=== PATIENT | male | born 1985 | race Caucasian/White ===

== ENCOUNTER 2020-11-06 09:23 | Emergency (ER) | payer OTHER, SELFPAY ==
[2020-11-06] VITALS (7 sets, daily range): BP systolic 127–157; BP diastolic 79–117; PULSE 64–87; RESP 14–20; TEMP 36.2; O2SAT 96–100; BMI 43.7
--- NOTE | 2020-11-06 09:44 | ECG_ITS ---
[facility] Test Date: 2020-11-06 Pat Name: Rodríguez Lim Department: Room: Gender: Male Occupational Therapist: : 1985 Requested By: Jefferson Matos Order Number: [id number] Marita MD: Jenni Bansal M.D. Measurements Intervals [place] Rate: 78 P: 13 NC: 166 QRS: 37 QRSD: 88 T: 69 QT: 346 QTc: 396 Interpretive Statements SINUS RHYTHM WITH SINUS ARRHYTHMIA Compared to ECG 12/29/2016 10:10:40 No significant changes Electronically Signed On 11-08-2020 9:00:35 CASTING ROOM OPERATOR by Jenni Bansal M.D. [email or web address] (acquired by [employer])/store/[id number] f
--- NOTE | 2020-11-06 09:44 | XR_ITS ---
WS: [id number] Portable AP upright chest, 11/06/2020 Clinical Data: chest pain Comparison: PA and lateral chest, 12/29/2016. Findings: No nodules, masses or effusions are seen. The heart is normal. The pulmonary vascularity is not increased. No pneumonia or pneumothorax is seen. There is a monitor lead over the left chest wal l. XR/XR chest 1V portable [id number] Impression: Negative chest.
--- NOTE | 2020-11-06 09:46 | ED_ITS ---
HPI - Chest Pain General: Chief Complaint: Chest Pain Stated Complaint: Chest Pain Time Seen by Provider: 11/06/20 09:33 History of Present Illness: HPI narrative: 35-year-old male presents emergency room with chest pain. He has had chest pain for several weeks. Least a week and 1/2 to 2 weeks ago he was seen at another ER in the area and was tested for Covid. That ultimately came back negative he describes what sounds like congestive heart failure having been read on a chest x-ray done at that visit. He has an echocardiogram scheduled. He has pain in the left side of his chest that is reproducible with palpation radiates up into his neck and his left shoulder. Today it got worse while he was working. This is been going on off and on for several weeks now. He has no personal history of coronary artery disease he is not previously been screened for any coronary artery disease he has no diabetes he is a former smoker. MD complaint: chest pain Onset (ago): week(s) Timing of current episode: episodic Prior episodes: Yes Onset: during exertion Pain location: left chest Pain radiation: neck and left shoulder Severity: moderate Quality: aching and heaviness Exacerbating factors: exertion Associated symptoms: Reports diaphoresis and dyspnea; Deny abdominal pain, fever(s), leg edema, nausea, palpitations, syncope, vomiting or other Treatment prior to arrival: none Review of Systems Const: Reports: diaphoresis; Denies: fever(s) ENMT: Denies: throat pain, ear or mastoid pain, nasal discharge or nasal congestion Card: Denies: palpitations or syncope Resp: Reports: dyspnea GI: Denies: abdominal pain, nausea or vomiting : Denies: flank pain, dysuria, urinary frequency or urinary urgency Skin/Breast: Denies: rash or pruritus [facility] ED PFSH: Medical History (Updated 11/06/20 @ 13:46 by Jefferson Gonzalez DO) Anxiety Depression Neuropathy Nodule of left lung Surgical History (Updated 11/06/20 @ 09:50 by Jefferson Gonzalez DO) Hx of inguinal hernia surgery Social History Smoking and tobacco status: former smoker Alcohol intake: current Alcohol intake frequency: few times a month Physical Exam Const: COMMON NORMALS: no acute distress GENERAL APPEARANCE: cooperative and comfortable ORIENTATION/CONSCIOUSNESS: Yes awake, Yes oriented to person, Yes oriented to place and Yes oriented to time HENMT: COMMON NORMALS: normocephalic, atraumatic and hearing grossly normal bilaterally HEAD & SCALP: normocephalic and atraumatic Neck/C-Spine: COMMON NORMALS: no JVD Chest: CHEST: Yes localized rib tenderness with anteroposterior compression (Left upper chest laterally) Resp: COMMON NORMALS: normal respiratory effort, No retractions, No use of accessory muscles and clear to auscultation bilaterally AUSCULTATION: clear to auscultation bilaterally Cardio: COMMON NORMALS: no JVD, regular rate, regular rhythm and No murmurs present (Cardio) RATE: regular rate RHYTHM: regular rhythm GI: COMMON NORMALS: Soft to palpation and No hepatosplenomegaly present AUSCULTATION: Yes normoactive bowel sounds PALPATION: Yes Soft to palpation, No Tenderness to palpation present (GI), No Guarding due to palpation present (GI) and Yes No hepatosplenomegaly present Extremity: COMMON NORMALS: normal to inspection, capillary refill normal, no clubbing, cyanosis or edema, no calf tenderness and no pedal edema Neuro: SENSORIUM/ORIENTATION: Yes oriented to person, Yes oriented to place and Yes oriented to time Skin: COMMON NORMALS: no rashes or lesions noted GENERAL SKIN EXAM: no rashes or lesions noted Course Vital Signs: Vital signs: Vital Signs Temperature 97.2 F L 11/06/20 09:29 Pulse Rate 64 11/06/20 13:00 Respiratory Rate 20 H 11/06/20 13:00 Blood Pressure 127/79 11/06/20 13:00 Pulse Oximetry 99 11/06/20 13:00 MDM - Chest Pain MDM Narrative: Medical decision making narrative: EKGs are unremarkable as are his troponins there is in the normal range with the 0 delta. We will go ahead and discharge him home. Case management will set him up for a sestamibi stress test asked him to start taking aspirin daily if he has any recurrence of symptoms he can return to the emergency room avoid exertional activities until this stress test is completed. Lab Data: Labs: Lab Results 11/06/20 11/06/20 11/06/20 Range/Units 09:50 09:50 09:50 WBC 8.1 (4.0-10.0) 10^3/ uL RBC 5.25 (4.1-5.3) 10^6/u L Hgb 15.3 (11.7-16.6) g/dL Hct 46.3 (42.0-52.0) % MCV 88.2 (80-94) fL MCH 29.1 (28.0-34.0) pg MCHC 33.0 (30.0-36.0) g/dL RDW 12.8 (12.1-15.1) % Plt Count 192 (130-400) 10^3/c mm MPV 12.4 H (7.4-10.4) fL Neut % (Auto) 58.4 % Lymph % (Auto) 25.4 % [place] % (Auto) 10.8 % Eos % (Auto) 3.8 % Baso % (Auto) 1.2 % Neut # (Auto) 4.72 (1.8-7.7) 10^3/u L Lymph # (Auto) 2.1 (0.8-4.8) 10^3/u L [place] # (Auto) 0.9 (0.2-0.9) 10^3/u L Eos # (Auto) 0.3 (0.0-0.8) 10^3/u L Baso # (Auto) 0.1 (0.0-0.1) 10^3/u L Nucleated RBC % (a uto) 0 % Nucleated RBCs # 0.0 /100WBC D-Dimer <= 0.27 (0-0.59) ug/mIFE U Sodium 135 L (136-145) mmol/L Potassium 4.0 (3.5-5.1) mmol/L Chloride 99 (98-107) mmol/L Carbon Dioxide 25 (22-29) mmol/L Anion Gap 15.0 (5-19) BUN 16 (6-20) mg/dL Creatinine 0.6 L (0.7-1.2) mg/dL GFR Calculation 153.3 H (90-130) mL/min Glucose 91 (65-115) mg/dL Calculated Osmolal ity 281 L (285-295) mOsm/k g Calcium 9.3 (8.5-10.5) mg/dL Total Bilirubin 0.3 (0.15-1.2) mg/dL AST 15 (0-40) U/L ALT 27 (0-41) U/L Alkaline Phosphata se 71 (40-130) IU/L Troponin T Baselin e (0-15) ng/L Troponin T 120 Min augustine (0-15) ng/L Delta Troponin T (0-10) ABS# NT-Pro-B Natriuret Pep 24 (0-125) pg/mL Total Protein 7.1 (6.6-8.7) g/dL Albumin 4.5 (3.5-5.2) g/dL Globulin 2.6 (1.3-4.6) g/dL 11/06/20 11/06/20 Range/Units 09:50 12:12 WBC (4.0-10.0) 10^3/ uL RBC (4.1-5.3) 10^6/u L Hgb (11.7-16.6) g/dL Hct (42.0-52.0) % MCV (80-94) fL MCH (28.0-34.0) pg MCHC (30.0-36.0) g/dL RDW (12.1-15.1) % Plt Count (130-400) 10^3/c mm MPV (7.4-10.4) fL Neut % (Auto) % Lymph % (Auto) % [place] % (Auto) % Eos % (Auto) % Baso % (Auto) % Neut # (Auto) (1.8-7.7) 10^3/u L Lymph # (Auto) (0.8-4.8) 10^3/u L [place] # (Auto) (0.2-0.9) 10^3/u L Eos # (Auto) (0.0-0.8) 10^3/u L Baso # (Auto) (0.0-0.1) 10^3/u L Nucleated RBC % (a uto) % Nucleated RBCs # /100WBC D-Dimer (0-0.59) ug/mIFE U Sodium (136-145) mmol/L Potassium (3.5-5.1) mmol/L Chloride (98-107) mmol/L Carbon Dioxide (22-29) mmol/L Anion Gap (5-19) BUN (6-20) mg/dL Creatinine (0.7-1.2) mg/dL GFR Calculation (90-130) mL/min Glucose (65-115) mg/dL Calculated Osmolal ity (285-295) mOsm/k g Calcium (8.5-10.5) mg/dL Total Bilirubin (0.15-1.2) mg/dL AST (0-40) U/L ALT (0-41) U/L Alkaline Phosphata se (40-130) IU/L Troponin T Baselin e 6 (0-15) ng/L Troponin T 120 Min augustine 6.00 (0-15) ng/L Delta Troponin T 0 (0-10) ABS# NT-Pro-B Natriuret Pep (0-125) pg/mL Total Protein (6.6-8.7) g/dL Albumin (3.5-5.2) g/dL Globulin (1.3-4.6) g/dL Discharge Plan Discharge Patient Disposition: Home Clinical Impression: Atypical chest pain Condition: Stable Prescriptions: New aspirin 81 mg tablet,delayed release (DR/EC) 81 mg PO DAILY Qty: 30 RF: 0 No Action gabapentin 300 mg capsule 300 mg PO DAILY PRN (Reason: Pain) RF: 0 fluoxetine 40 mg capsule 40 mg PO DAILY@05 RF: 0 Discharge Orders: Discharge ED (Routine); Ordered 11/06/20 Ordered By: Jefferson Gonzalez Referrals: Aniya Arguello [Primary Care Provider] - Discharge Diet: Usual diet Discharge Activity: Limit activity as instructed Activity Restrictions/Additional Instructions: His management will call with an appointment to have a stress test. Coding Level of Care Code ED Manager Administrative Services for Danielg Fwd Exam Comprehensive
[2020-11-06 09:59] LABS: Basophils # 0.1 10^3/uL (0.0-0.1); Basophils % 1.2 %; Eosinophils # 0.3 10^3/uL (0.0-0.8); Eosinophils % 3.8 %; Hematocrit 46.3 % (42.0-52.0); Hemoglobin 15.3 g/dL (11.7-16.6); Lymphocytes # 2.1 10^3/uL (0.8-4.8); Lymphocytes % 25.4 %; Mean Corpuscular Hemoglobin 29.1 pg (28.0-34.0); Mean Corpuscular Volume 88.2 fL (80-94); Mean Platelet Volume 12.4 fL (7.4-10.4); Monocytes # 0.9 10^3/uL (0.2-0.9); Monocytes % 10.8 %; Neutrophils # 4.72 10^3/uL (1.8-7.7); Neutrophils % 58.4 %; Nucleated Red Blood Cells % 0 %; Platelet Count 192 10^3/cmm (130-400); Red Blood Count 5.25 10^6/uL (4.1-5.3); Red Cell Distribution Width 12.8 % (12.1-15.1); White Blood Count 8.1 10^3/uL (4.0-10.0)
[2020-11-06 10:13] LABS: D Dimer <= 0.27 ug/mIFEU (0-0.59)
[2020-11-06 10:19] LABS: Troponin(5th) Baseline 6 ng/L (0-15)
[2020-11-06 10:27] LABS: Alanine Aminotransferase 27 U/L (0-41); Albumin Level 4.5 g/dL (3.5-5.2); Alkaline Phosphatase 71 IU/L (40-130); Aspartate Amino Transferase 15 U/L (0-40); Blood Urea Nitrogen 16 mg/dL (6-20); Calcium 9.3 mg/dL (8.5-10.5); Carbon Dioxide 25 mmol/L (22-29); Chloride 99 mmol/L (98-107); Globulin 2.6 g/dL (1.3-4.6); Glomerular Filtration Rate 153.3 mL/min (90-130); Glucose 91 mg/dL (65-115); NT Pro B Type Natriuretic Pept 24 pg/mL (0-125); Osmolality Calculated 281 mOsm/kg (285-295); Sodium 135 mmol/L (136-145); Total Bilirubin 0.3 mg/dL (0.15-1.2); Total Protein 7.1 g/dL (6.6-8.7)
--- NOTE | 2020-11-06 11:44 | ECG_ITS ---
[facility] Test Date: 2020-11-06 Pat Name: Rodríguez Lim Department: Room: Gender: Male Sap Bpc Developer: : 1985 Requested By: Jefferson Matos Order Number: [id number] Marita MD: Jenni Bansal M.D. Measurements Intervals [place] Rate: 62 P: 10 SD: 191 QRS: 49 QRSD: 94 T: 64 QT: 395 QTc: 403 Interpretive Statements SINUS RHYTHM Compared to ECG 12/29/2016 10:10:40 No significant changes Electronically Signed On 11-08-2020 9:23:18 RN MIDWIFE by Jenni Bansal M.D. [email or web address] county [email or web address] medical specialty hospital - boardman, incEniram/store/OM/[id number]
--- NOTE | 2020-11-06 12:08 | PC.NURSE ---
EKG done at 1205 and shown to ER doctor
[2020-11-06 12:45] LABS: Troponin 5 2HR Delta 0 ABS# (0-10)
--- NOTE | 2020-11-10 08:57 | DCPLANNER ---
Addendum entered by Kaylie Silva 11/25/20 15:19: medical and health services manager was told that patients insurance is wanting a peer to peer for the stress test. medical and health services manager called patient and informed patient of this. medical and health services manager told patient that he would need to see his primary care physician and if his primary care physician wanted patient to have a stress test than his primary care physician can order the stress test. Patient stated that he understood. Original Note: medical and health services manager had message to schedule an out patient stress test for patient. medical and health services manager faxed order to centralized scheduling. Will call for appointment information.
== END 2020-11-06 14:01 | disposition home or self-care (01) ==
PROVIDERS: Emergency Provider Family Medicine; PCP Nurse Practitioner Family
DX: R07.89 Other chest pain (principal); Z87.891 Personal history of nicotine dependence
CPT/HCPCS: 12345; 36415; 71045; 80053; 83880; 84484; 85025; 85378; 93005; 99283; 99284

== ENCOUNTER 2020-11-30 07:06 | Outpatient (CLI) | payer OTHER, SELFPAY ==
[2020-11-30] MEDS: iohexol 350 mg/mL 100 mL Btl IV (07:48)
--- NOTE | 2020-11-30 08:00 | CT_ITS ---
WS: [id number] CTA THORACIC TECHNIQUE: Contrast enhanced CTA of the thoracic aorta with coronal and sagittal reformatted images a nd maximum intensity projection (MIP) images. CLINICAL INFORMATION: R07.9 - Chest pain, unspecified COMPARISON: None. DLP: 572.[address] scans at [facility] use at least one of these dose optimization techniques: automat ed exposure control; mA and/or kV adjustment per patient size (includes targeted exams where dose is matched to clinical indication); or iterative reconstruction. FINDINGS: Proximal main pulmonary arteries are normal. Normal segmental and subsegmental pulmonary arteries. No evidence of pulmonary embolus. Lungs are well aerated. No acute pulmonary infiltrates. No consolidation or pleural fluid. No mediast inal or hilar lymphadenopathy. Calcified right hilar lymph nodes. No axillary lymphadenopathy. Normal caliber thoracic aorta. Adrenal glands are normal. CT/CT angio chest [id number] IMPRESSION: 1. Proximal main pulmonary arteries are normal. Normal segmental and subsegmen rabia pulmonary arteries. No evidence for pulmonary embolus. 2. Lungs are well aerated. No acute pulmonary infiltrates. No consolidation or pleural fluid. 3. No mediastinal or hilar lymphadenopathy. 4. No other significant findings.
== END 2020-11-30 07:07 | disposition home or self-care (01) ==
LOC: CT 07:09
PROVIDERS: PCP Family Medicine; Visit Provider Thoracic Surgery (Cardiothoracic Vascular Surgery)
DX: R07.9 Chest pain, unspecified (principal)
CPT/HCPCS: 71275

== ENCOUNTER → 2021-06-18 10:17 | Outpatient (BNVA) | payer OTHER, SELFPAY | PROVIDERS: PCP Family Medicine; Visit Provider Registered Nurse | DX: Z20.822 Contact with and (suspected) exposure to COVID-19 (principal); R19.7 Diarrhea, unspecified | CPT/HCPCS: 87635 ==

== ENCOUNTER 2021-06-22 14:52 | Outpatient (CLI) | payer OTHER, SELFPAY ==
--- NOTE | 2021-06-22 15:01 | XRR_ITS ---
PROCEDURE INFORMATION: Exam: XR Chest Exam date and time: 06/22/2021 3:01 PM Age: 35 years old Clinical indication: Cough; Additional info: R05 - cough TECHNIQUE: Imaging protocol: XR of the chest. Views: 2 views. COMPARISON: CR XR chest 1V portable [id number] 11/06/2020 9:49 AM FINDINGS: Lungs: Unremarkable. No consolidation. Pleural spaces: Unremarkable. No pleural effusion. No pneumothorax. Heart/Mediastinum: Unremarkable. No cardiomegaly. Bones/joints: Unremarkable. XR/XR chest 2V* [id number] IMPRESSION: No acute findings.
[2021-06-22 15:29] LABS: Basophils # 0.1 10^3/uL (0.0-0.1); Basophils % 0.8 %; Eosinophils # 0.3 10^3/uL (0.0-0.8); Eosinophils % 3.3 %; Hematocrit 47.5 % (42.0-52.0); Hemoglobin 15.5 g/dL (11.7-16.6); Lymphocytes # 1.4 10^3/uL (0.8-4.8); Lymphocytes % 18.3 %; Mean Corpuscular HGB Conc 32.6 g/dL (30.0-36.0); Mean Corpuscular Hemoglobin 29.3 pg (28.0-34.0); Mean Corpuscular Volume 89.8 fl (80-94); Mean Platelet Volume 12.8 fL (7.4-10.4); Monocytes # 0.7 10^3/uL (0.2-0.9); Neutrophils # 5.21 10^3/uL (1.8-7.7); Neutrophils % 68.3 %; Nucleated Red Blood Cells % 0 %; Platelet Count 213 10^3/cmm (130-400); Red Blood Count 5.29 10^6/uL (4.1-5.3); Red Cell Distribution Width 12.9 % (12.1-15.1); White Blood Count 7.6 10^3/uL (4.0-10.0)
== END 2021-06-22 14:53 | disposition home or self-care (01) ==
LOC: RAD 14:58
PROVIDERS: PCP Family Medicine; Visit Provider Nurse Practitioner Family
DX: R05 Cough (principal); Z15.89 Genetic susceptibility to other disease; M19.90 Unspecified osteoarthritis, unspecified site; Z79.899 Other long term (current) drug therapy
CPT/HCPCS: 71046; 85025

== ENCOUNTER 2022-07-01 21:02 | Emergency (ER) | payer OTHER, SELFPAY ==
[2022-07-01 21:19] VITALS: BP 155/93; PULSE 74; RESP 12; TEMP 36.6; O2SAT 97; BMI 42.5
--- NOTE | 2022-07-02 00:42 | CTR_ITS ---
PROCEDURE INFORMATION: Exam: CT Right Upper Extremity With Contrast, Elbow Exam date and time: 07/02/2022 1:34 AM Age: 36 years old Clinical indication: Pain; Elbow; Right; Additional info: R elbow pain, redness, swelling TECHNIQUE: Imaging protocol: Computed tomography of the Right upper extremity with contrast. Exam focused on the elbow. Radiation optimization: All CT scans at this facility use at least one of these dose optimization techniques: automated exposure control; mA and/or kV adjustment per patient size (includes targeted exams where dose is matched to clinical indication); or iterative reconstruction. Contrast material: OMNI 350; Contrast volume: 80 ml; Contrast route: INTRAVENOUS (IV); COMPARISON: No relevant prior studies available. RADIATION DOSE METRICS: Total DLP (mGy-cm): 206.79 FINDINGS: Bones/joints: No bone destruction or periosteal elevation. No acute fracture or dislocation. Soft tissues: There is dorsal subcutaneous edema consistent with cellulitis. No abscess. CT/[place] elbow [place] w con [id number] IMPRESSION: 1. There is dorsal subcutaneous edema consistent with cellulitis. No abscess. 2. No evidence of osteomyelitis. 3. No acute fracture or dislocation.
[2022-07-02 01:40] LABS: Basophils # 0.1 10^3/uL (0.0-0.1); Basophils % 1.2 %; Eosinophils # 0.3 10^3/uL (0.0-0.8); Eosinophils % 5.5 %; Hematocrit 44.5 % (42.0-52.0); Hemoglobin 14.4 g/dL (11.7-16.6); Lymphocytes # 1.6 10^3/uL (0.8-4.8); Lymphocytes % 27.3 %; Mean Corpuscular HGB Conc 32.4 g/dL (30.0-36.0); Mean Corpuscular Hemoglobin 28.7 pg (28.0-34.0); Mean Corpuscular Volume 88.6 fl (80-94); Mean Platelet Volume 12.4 fL (7.4-10.4); Monocytes # 0.7 10^3/uL (0.2-0.9); Monocytes % 13.1 %; Neutrophils # 2.99 10^3/uL (1.8-7.7); Neutrophils % 52.7 %; Nucleated Red Blood Cells % 0 %; Platelet Count 206 10^3/cmm (130-400); Red Blood Count 5.02 10^6/uL (4.1-5.3); Red Cell Distribution Width 13.1 % (12.1-15.1); White Blood Count 5.7 10^3/uL (4.0-10.0)
[2022-07-02] MEDS: iohexol 350 mg/mL 100 mL Btl 80 ML IV (01:43)
[2022-07-02 01:47] LABS: Erythrocyte Sedimentation Rate 12 mm/hr (0-10)
--- NOTE | 2022-07-02 01:50 | W.ED.WOUNDLC ---
HPI - Wound/Laceration General: Chief Complaint: Wound/Laceration Stated Complaint: Right arm pain Time Seen by Provider: 07/02/22 00:26 Source: patient History of Present Illness: 36-year-old male complaining of right posterior and medial elbow pain, redness, and swelling. He has noticed this over the past few days. He was seen in outside hospital, and given Keflex as an outpatient. His swelling and redness have worsened despite this. He denies fever. Onset (ago): day(s) Extremity Location: Right: elbow Associated symptoms: Denies fever(s), nausea or vomiting Review of Systems Const: Denies: fever(s) ENMT: Denies: throat pain Card: Denies: chest pain or palpitations Resp: Denies: dyspnea, productive cough or non-productive cough GI: Denies: abdominal pain, nausea or vomiting Musc: Denies: neck pain Skin/Breast: Reports: rash and erythema PFSH ED PFSH: Medical History Anxiety Depression Neuropathy Nodule of left lung Surgical History Hx of inguinal hernia surgery Family History Father Healthy adult Mother Unknown family medical history Social History Smoking and tobacco status: former smoker Alcohol intake: current Alcohol intake frequency: few times a month Marital status: Number of children: 4 Current occupational status: employed History of recent travel: No Physical Exam Const: COMMON NORMALS: no acute distress GENERAL APPEARANCE: cooperative; not ill appearing and not frail appearing HENMT: COMMON NORMALS: normocephalic, atraumatic and Normal external nose present HEAD & SCALP: normocephalic and atraumatic FACE & SINUS: normal facial exam and face symmetric NOSE: Normal external nose present Eye: COMMON NORMALS: Equal, round and reactive pupils present and EOMs intact bilaterally PUPIL: Yes Equal, round and reactive pupils present Neck/C-Spine: GENERAL: Yes trachea midline Chest: CHEST: Yes Symmetrical chest wall rise Resp: COMMON NORMALS: normal respiratory effort, No retractions, No use of accessory muscles and clear to auscultation bilaterally AUSCULTATION: clear to auscultation bilaterally Cardio: COMMON NORMALS: regular rate and regular rhythm RATE: regular rate RHYTHM: regular rhythm GI: COMMON NORMALS: Normal to inspection, nondistended, normoactive bowel sounds present Extremity: COMMON NORMALS: no pedal edema NARRATIVE EXTREMITY EXAM: Exam of the right upper extremity reveals tenderness, swelling, and redness over the posterior and medial right elbow. There is no streaking. Sensation is intact distally. There is no definite fluid collection present Neuro: ROCIO COMA SCALE: document GCS findings [place] coma scale eye opening: Spontaneous Rocio coma scale verbal response: Orientated [place] coma scale motor response: Obey commands [place] coma scale total score: 15 SENSORY EXAM: Yes extremities (intact) Psych: COMMON NORMALS: speech normal SPEECH: Yes normal speech Skin: COMMON NORMALS: no rashes or lesions noted GENERAL SKIN EXAM: no rashes or lesions noted Course Vital Signs: Vital signs: Vital Signs Temperature 97.8 F 07/01/22 21:19 Pulse Rate 83 07/02/22 02:00 Respiratory Rate 16 07/02/22 02:00 Blood Pressure 137/79 07/02/22 02:00 Pulse Oximetry 97 07/02/22 02:00 Oxygen Delivery Me thod 07/01/22 21:19 MDM - Wound/Laceration Medical Decision Making Afebrile here. CBC is normal. BMP is normal. CRP is only 5. ESR is 12. CT shows no drainable abscess. There is subcutaneous edema consistent with cellulitis. No evidence of joint involvement or bursal involvement. He received 900 of clindamycin here. He will be allowed home on clindamycin. He knows to return for worsening symptoms despite treatment. Lab Data : 07/02/22 01:10 07/02/22 01:[address] 07/02/22 00:42 IMPRESSION: 1. There is dorsal subcutaneous edema consistent with cellulitis. No abscess. 2. No evidence of osteomyelitis. 3. No acute fracture or dislocation. Venous Duplex 07/02/22 01:52 IMPRESSION: No evidence of deep vein thrombosis. Laboratory Results WBC 5.7 10^3/uL (4.0-10.0) 07/02/22 01:10 RBC 5.02 10^6/uL (4.1-5.3) 07/02/22 01:10 Hgb 14.4 g/dL (11.7-16.6) 07/02/22 01:10 Hct 44.5 % (42.0-52.0) 07/02/22 01:10 MCV 88.6 fl (80-94) 07/02/22 01:10 MCH 28.7 pg (28.0-34.0) 07/02/22 01:10 MCHC 32.4 g/dL (30.0-36.0) 07/02/22 01:10 RDW 13.1 % (12.1-15.1) 07/02/22 01:10 Plt Count 206 10^3/cmm (130-400) 07/02/22 01:10 MPV 12.4 fL (7.4-10.4) H 07/02/22 01:10 Neut % (Auto) 52.7 % 07/02/22 01:10 Lymph % (Auto) 27.3 % 07/02/22 01:10 [place] % (Auto) 13.1 % 07/02/22 01:10 Eos % (Auto) 5.5 % 07/02/22 01:10 Baso % (Auto) 1.2 % 07/02/22 01:10 Neut # (Auto) 2.99 10^3/uL (1.8-7.7) 07/02/22 01:10 Lymph # (Auto) 1.6 10^3/uL (0.8-4.8) 07/02/22 01:10 [place] # (Auto) 0.7 10^3/uL (0.2-0.9) 07/02/22 01:10 Eos # (Auto) 0.3 10^3/uL (0.0-0.8) 07/02/22 01:10 Baso # (Auto) 0.1 10^3/uL (0.0-0.1) 07/02/22 01:10 Nucleated RBC % (auto) 0 % 07/02/22 01:10 Nucleated RBCs # 0.0 /100WBC 07/02/22 01:10 ESR 12 mm/hr (0-10) H 07/02/22 01:10 Sodium 139 mmol/L (136-145) 07/02/22 01:10 Potassium 3.8 mmol/L (3.5-5.1) 07/02/22 01:10 Chloride 103 mmol/L (98-107) 07/02/22 01:10 Carbon Dioxide 25 mmol/L (22-29) 07/02/22 01:10 Anion Gap 14.8 (5-19) 07/02/22 01:10 BUN 14 mg/dL (6-20) 07/02/22 01:10 Creatinine 0.6 mg/dL (0.7-1.2) L 07/02/22 01:10 GFR Calculation 152.4 mL/min (90-130) H 07/02/22 01:10 Glucose 111 mg/dL (65-115) 07/02/22 01:10 Calculated Osmolality 289 mOsm/kg (285-295) 07/02/22 01:10 Lactate 1.1 mmol/L (0.5-2.2) 07/02/22 01:10 Calcium 9.1 mg/dL (8.5-10.5) 07/02/22 01:10 Total Bilirubin 0.3 mg/dL (0.15-1.2) 07/02/22 01:10 AST 18 U/L (0-40) 07/02/22 01:10 ALT 27 U/L (0-41) 07/02/22 01:10 Alkaline Phosphatase 70 U/L (40-130) 07/02/22 01:10 C-Reactive Protein 5.7 mg/L (0.0-4.9) H 07/02/22 01:10 Total Protein 7.4 g/dL (6.6-8.7) 07/02/22 01:10 Albumin 4.2 g/dL (3.5-5.2) 07/02/22 01:10 Globulin 3.2 g/dL (1.3-4.6) 07/02/22 01:10 Discharge Plan Discharge Patient Disposition: Home Clinical Impression: Cellulitis of arm, right Condition: Stable Prescriptions: Continued clindamycin HCl 300 mg capsule 600 mg PO Q6H 10 Days Qty: 80 0RF hydrocodone-acetaminophen 5-325 mg tablet 1 tab PO Q6H PRN (Reason: pain) 5 Days Qty: 10 0RF No Action All Day Allergy (cetirizine) 10 mg capsule 10 mg PO DAILY PRN acetaminophen-codeine 300-30 mg tablet 1 tab PO Q6H PRN (Reason: pain) 7 Days Qty: 20 0RF silver sulfadiazine 1 % cream 1 applic topical BID 14 Days Qty: 50 2RF Rx Instructions: apply a 1.5 mm thickness valacyclovir [Valtrex] 500 mg tablet 500 mg PO DAILY fluoxetine 40 mg capsule 40 mg PO DAILY@05 Discharge Orders: Discharge ED (Routine); Ordered 07/02/22 Ordered By: Rufino Boogie Referrals: Lincoln Ontiveros [Primary Care Provider] - 1-3 days Patient Instructions: Cellulitis (ED), Opioid Safety Activity Restrictions/Additional Instructions: Return for fever greater than 100, worsening pain, worsening redness or streaking despite 2-3 doses of antibiotics. Ice may help with pain and swelling. Return for vomiting liquids or medications, or any other concerning symptoms. Follow-up with your doctor on Monday or Monday for a wound check. Stop the Keflex in favor of the new antibiotic you were given Coding Level of Care Code ED Labor Delivery Specialist for Danielg Fwd Exam Comprehensive
--- NOTE | 2022-07-02 01:52 | USR_ITS ---
PROCEDURE INFORMATION: Exam: US Duplex Right Lower Extremity Veins, Limited Exam date and time: 07/02/2022 2:33 AM Age: 36 years old Clinical indication: Swelling (edema) of limb; Upper extremity, right; Additional info: Rue pain, redness, swelling TECHNIQUE: Imaging protocol: Real-time Duplex ultrasound of the Right Lower Extremity with 2-D german scale, color Doppler flow and spectral waveform analysis with image documentation. Limited exam was focused on the right lower extremity veins. COMPARISON: No relevant prior studies available. FINDINGS: Right deep veins: Unremarkable. The common femoral, femoral, proximal profunda femoral and popliteal veins are patent without thrombus. Normal Doppler waveforms. Normal compressibility and/or augmentation response. Right superficial veins: Unremarkable. Saphenofemoral junction is patent without thrombus. Soft tissues: Unremarkable. US/[place] [id number] IMPRESSION: No evidence of deep vein thrombosis.
[2022-07-02 01:57] LABS: Lactate (Lactic Acid level) 1.1 mmol/L (0.5-2.2)
[2022-07-02 01:58] LABS: Alanine Aminotransferase 27 U/L (0-41); Albumin Level 4.2 g/dL (3.5-5.2); Alkaline Phosphatase 70 U/L (40-130); Anion Gap 14.8 (5-19); Aspartate Amino Transferase 18 U/L (0-40); Blood Urea Nitrogen 14 mg/dL (6-20); C Reactive Protein 5.7 mg/L (0.0-4.9); Calcium 9.1 mg/dL (8.5-10.5); Carbon Dioxide 25 mmol/L (22-29); Chloride 103 mmol/L (98-107); Globulin 3.2 g/dL (1.3-4.6); Glomerular Filtration Rate 152.4 mL/min (90-130); Glucose 111 mg/dL (65-115); Osmolality Calculated 289 mOsm/kg (285-295); Potassium 3.8 mmol/L (3.5-5.1); Sodium 139 mmol/L (136-145); Total Bilirubin 0.3 mg/dL (0.15-1.2); Total Protein 7.4 g/dL (6.6-8.7)
[2022-07-02 02:00] VITALS: BP 137/79; PULSE 83; RESP 16; O2SAT 97
[2022-07-02] MEDS: clindamycin 900 MG/50 ML PREMIX 100 MG IV (03:34)
[2022-07-02 04:04] VITALS: BP 139/83; PULSE 56; O2SAT 95
== END 2022-07-02 04:05 | disposition home or self-care (01) ==
PROVIDERS: Emergency Provider Emergency Medicine; PCP Family Medicine
DX: L03.113 Cellulitis of right upper limb (principal); Z87.891 Personal history of nicotine dependence
CPT/HCPCS: 73201; 80053; 83605; 85025; 85651; 86140; 87040; 93971; 96365; 99285; J3490; Q9967

== ENCOUNTER 2022-07-03 14:05 | Emergency (ER) | payer OTHER, SELFPAY ==
[2022-07-03 14:10] VITALS: BP 156/102; PULSE 72; RESP 16; TEMP 36.7; O2SAT 98; BMI 42.5
--- NOTE | 2022-07-03 14:51 | ED_ITS ---
HPI - Wound/Laceration General: Chief Complaint: Wound/Laceration Stated Complaint: bumps under skin Time Seen by Provider: 07/03/22 14:39 History of Present Illness: 36-year-old male presents with concerns for right arm cellulitis and possibly cellulitis in his leg. Patient was seen couple days ago at [facility] and started on clindamycin with a cellulitis. Patient was seen here on 07/02/2022. At that time he had a CT of his elbows that showed no abscess with cellulitis. Patient clindamycin was increased and he was given a dose of Vanco. They present because they feel like the swelling is gotten worse however the redness and warmth is decreased. Patient also had a negative venous Doppler at that time. Patient has no systemic complaints. Associated symptoms: Denies chills, fever(s), nausea or vomiting Review of Systems Const: Denies: fever(s) or chills Eyes: Denies: change in vision ENMT: Denies: throat pain or ear or mastoid pain Card: Denies: chest pain or palpitations Resp: Denies: dyspnea or productive cough GI: Denies: abdominal pain, nausea or vomiting : Denies: flank pain or difficulty urinating Musc: Reports: other (Please see HPI) Skin/Breast: Reports: other (Please see HPI) Psych: Denies: anxiety or depression [facility] ED PFSH: Medical History Anxiety Depression Neuropathy Nodule of left lung Surgical History Hx of inguinal hernia surgery Family History Father Healthy adult Mother Unknown family medical history Social History Smoking and tobacco status: former smoker Alcohol intake: current Alcohol intake frequency: few times a month Marital status: Number of children: 4 Current occupational status: employed History of recent travel: No Physical Exam Const: COMMON NORMALS: no acute distress, patient oriented x3, no limitations and alert Eye: COMMON NORMALS: Equal, round and reactive pupils present and EOMs intact bilaterally PUPIL: Yes Equal, round and reactive pupils present Neck/C-Spine: COMMON NORMALS: no JVD Resp: COMMON NORMALS: normal respiratory effort, No use of accessory muscles and clear to auscultation bilaterally AUSCULTATION: clear to auscultation bilaterally Cardio: COMMON NORMALS: no JVD and regular rate RATE: regular rate GI: COMMON NORMALS: Normal to inspection, nondistended, normoactive bowel sounds present, Soft to palpation and non-tender PALPATION: Yes Soft to palpation Extremity: COMMON NORMALS: full ROM, capillary refill normal and no joint enlargement Neuro: COMMON NORMALS: patient oriented x3 SENSORIUM/ORIENTATION: Yes alert Psych: COMMON NORMALS: mental status grossly normal, cooperative and speech normal SPEECH: Yes normal speech Skin: OTHER: Soft tissue swelling with some firm small subcutaneous firmness. No palpable abscess. There is 1 present proximal to the right elbow, 1 small subcutaneous nodule above left knee. No significant erythema. Very mild warmth with likely mild induration to the one above the elbow Course Vital Signs: Vital signs: Vital Signs Temperature 98.0 F 07/03/22 14:10 Pulse Rate 72 07/03/22 14:10 Respiratory Rate 16 07/03/22 14:10 Blood Pressure 156/102 07/03/22 14:10 Pulse Oximetry 98 07/03/22 14:10 Oxygen Delivery Me thod 07/03/22 14:10 MDM - Wound/Laceration Medical Decision Making Patient with mild cellulitis that seems to be improving. However patient and family is concerned that it may be a second 1. I will add Keflex and have him continue clinda. They should follow-up with her primary care provider next week. Patient CRP is negative today at where it was elevated on 07/02/2022. There is no abscess palpable. Patient has no elevated white count. I discussed with family that it takes time for antibiotics to work and they are not immediate. Patient follow-up with her primary care provider next week. Lab Data : 07/03/22 15:01 Laboratory Results WBC 5.5 10^3/uL (4.0-10.0) 07/03/22 15:01 RBC 4.96 10^6/uL (4.1-5.3) 07/03/22 15:01 Hgb 14.4 g/dL (11.7-16.6) 07/03/22 15:01 Hct 44.8 % (42.0-52.0) 07/03/22 15: MCV 90.3 fl (80-94) 07/03/22 15: MCH 29.0 pg (28.0-34.0) 07/03/22 15: MCHC 32.1 g/dL (30.0-36.0) 07/03/22 15: RDW 13.3 % (12.1-15.1) 07/03/22 15: Plt Count 199 10^3/cmm (130-400) 07/03/22 15: MPV 12.5 fL (7.4-10.4) H 07/03/22 15:01 Neut % (Auto) 59.8 % 07/03/22 15:01 Lymph % (Auto) 23.2 % 07/03/22 15:01 [place] % (Auto) 11.2 % 07/03/22 15: Eos % (Auto) 4.3 % 07/03/22 15:01 Baso % (Auto) 1.3 % 07/03/22 15: Neut # (Auto) 3.30 10^3/uL (1.8-7.7) 07/03/22 15:01 Lymph # (Auto) 1.3 10^3/uL (0.8-4.8) 07/03/22 15:01 [place] # (Auto) 0.6 10^3/uL (0.2-0.9) 07/03/22 15:01 Eos # (Auto) 0.2 10^3/uL (0.0-0.8) 07/03/22 15:01 Baso # (Auto) 0.1 10^3/uL (0.0-0.1) 07/03/22 15:01 Nucleated RBC % (auto) 0 % 07/03/22 15: Nucleated RBCs # 0.0 /100WBC 07/03/22 15:01 C-Reactive Protein 4.1 mg/L (0.0-4.9) 07/03/22 15:01 Discharge Plan Discharge Patient Disposition: Home Clinical Impression: Cellulitis of arm, right Condition: Stable Prescriptions: New cephalexin 500 mg capsule 500 mg PO TID 7 Days Qty: 21 0RF No Action All Day Allergy (cetirizine) 10 mg capsule 10 mg PO DAILY PRN acetaminophen-codeine 300-30 mg tablet 1 tab PO Q6H PRN (Reason: pain) 7 Days Qty: 20 0RF silver sulfadiazine 1 % cream 1 applic topical BID 14 Days Qty: 50 2RF Rx Instructions: apply a 1.5 mm thickness valacyclovir [Valtrex] 500 mg tablet 500 mg PO DAILY fluoxetine 40 mg capsule 40 mg PO DAILY@05 clindamycin HCl 300 mg capsule 600 mg PO Q6H 10 Days Qty: 80 0RF hydrocodone-acetaminophen 5-325 mg tablet 1 tab PO Q6H PRN (Reason: pain) 5 Days Qty: 10 0RF Discharge Orders: Discharge ED (Routine); Ordered 07/03/22 Ordered By: Maurice Reyes Referrals: Lincoln Ontiveros [Primary Care Provider] - Discharge Diet: Usual diet Discharge Activity: Resume usual activity Patient Instructions: Opioid Safety Activity Restrictions/Additional Instructions: Follow-up with your primary care provider next week for recheck of your symptoms Coding Level of Care Code ED Heel Blacker for Yassine Fwd Exam Comprehensive
[2022-07-03 15:22] LABS: Basophils # 0.1 10^3/uL (0.0-0.1); Basophils % 1.3 %; Eosinophils # 0.2 10^3/uL (0.0-0.8); Eosinophils % 4.3 %; Hematocrit 44.8 % (42.0-52.0); Hemoglobin 14.4 g/dL (11.7-16.6); Lymphocytes # 1.3 10^3/uL (0.8-4.8); Lymphocytes % 23.2 %; Mean Corpuscular HGB Conc 32.1 g/dL (30.0-36.0); Mean Corpuscular Volume 90.3 fl (80-94); Mean Platelet Volume 12.5 fL (7.4-10.4); Monocytes # 0.6 10^3/uL (0.2-0.9); Monocytes % 11.2 %; Neutrophils % 59.8 %; Nucleated Red Blood Cells % 0 %; Platelet Count 199 10^3/cmm (130-400); Red Blood Count 4.96 10^6/uL (4.1-5.3); Red Cell Distribution Width 13.3 % (12.1-15.1); White Blood Count 5.5 10^3/uL (4.0-10.0)
[2022-07-03 15:49] LABS: C Reactive Protein 4.1 mg/L (0.0-4.9)
== END 2022-07-03 16:16 | disposition home or self-care (01) ==
PROVIDERS: Emergency Provider Student in an Organized Health Care Education/Training Program; PCP Family Medicine
DX: L03.113 Cellulitis of right upper limb (principal)
CPT/HCPCS: 36415; 85025; 86140; 99283

== ENCOUNTER 2022-07-06 12:23 | Emergency (ER) | payer OTHER, SELFPAY ==
[2022-07-06 13:13] VITALS: BP 139/88; PULSE 77; RESP 16; TEMP 36.4; O2SAT 100; BMI 42.5
--- NOTE | 2022-07-06 13:35 | US_ITS ---
WS: [id number] INDICATION: RIGHT elbow pain/tenderness TECHNIQUE: Ultrasound area of concern RIGHT elbow COMPARISON: CT July 02, 2022 FINDINGS: Mild subcutaneous edema with skin thickening. Cellulitis dorsal elbow previously described on the recent elbow CT. No evidence of drainable fluid collection or abscess today. No cystic or oscar d lesions. No suspicious findings. US/US soft tissue/extremity 17201 IMPRESSION: No drainable fluid collections in the area of concern.
--- NOTE | 2022-07-06 13:36 | W.ED.GENADLT ---
HPI - General Adult General: Chief complaint: General Medical Stated complaint: Rash on body Time Seen by Provider: 07/06/22 13:17 History of Present Illness: Patient is a 36-year-old male comes to the ED with right elbow tender mass. Patient was seen at urgent care and the doctor sent patient here to the ED to get IV antibiotics and to be further evaluated. Patient was seen here in the ED July 01 for same complaint and diagnosed with cellulitis and was discharged home on clindamycin. Right elbow mass has not improved and gotten worse. Patient says it gets worse the more active he is and more movement he does with his elbow. The heat and the redness have improved on right elbow. He rates his pain currently an 8 out of 10 on right elbow. Associated symptoms: Deny chest pain, dyspnea, headache(s), nausea, rash, palpitations or vomiting Review of Systems Const: Denies: fever(s), chills or fatigue Eyes: Denies: change in vision or eye discomfort ENMT: Denies: throat pain, odynophagia, nasal discharge or nasal congestion Card: Denies: chest pain, palpitations, edema, swelling of feet/ankles, dyspnea on exertion or orthopnea Resp: Denies: dyspnea, productive cough or non-productive cough GI: Denies: abdominal pain, nausea, vomiting, diarrhea, constipation or hematochezia : Denies: flank pain, difficulty urinating, dysuria or hematuria Musc: Reports: extremity pain (Right elbow pain); Denies: neck pain, back pain or extremity swelling Skin/Breast: Reports: new lesions (Right elbow tender mass.); Denies: rash Neuro: Denies: headache(s), numbness in extremities or weakness in extremities [facility] ED PFSH: Medical History Anxiety Depression Neuropathy Nodule of left lung Surgical History Hx of inguinal hernia surgery Family History Father Healthy adult Mother Unknown family medical history Social History Smoking and tobacco status: former smoker Alcohol intake: current Alcohol intake frequency: few times a month Marital status: Number of children: 4 Current occupational status: employed History of recent travel: No Physical Exam Const: COMMON NORMALS: no acute distress, patient oriented x3 and alert HENMT: COMMON NORMALS: normocephalic HEAD & SCALP: normocephalic MOUTH: Normal oral and palatal mucosa present THROAT: posterior oropharynx normal and uvula midline Neck/C-Spine: COMMON NORMALS: supple GENERAL: Yes normal visual inspection Resp: COMMON NORMALS: normal respiratory effort, No retractions, No use of accessory muscles and clear to auscultation bilaterally AUSCULTATION: clear to auscultation bilaterally Cardio: COMMON NORMALS: regular rate, regular rhythm, S1 normal heart sound present, S2 normal heart sound present, No gallops present (Cardio), No clicks present (Cardio), No murmurs present (Cardio) and Peripheral pulses 2+ throughout RATE: regular rate RHYTHM: regular rhythm HEART SOUNDS: S1 normal heart sound present and S2 normal heart sound present PERIPHERAL PULSES: Peripheral pulses 2+ throughout GI: COMMON NORMALS: Normal to inspection, nondistended, normoactive bowel sounds present, Soft to palpation, non-tender and no masses PALPATION: Yes Soft to palpation : COMMON NORMALS: Yes no CVA tenderness BLADDER/KIDNEY EXAM: Yes no CVA tenderness Back/Pelvis: COMMON NORMALS: no CVA tenderness Extremity: NARRATIVE EXTREMITY EXAM: Right elbow?firm tender mass approximately 5 cm in diameter. No erythema or warmth. No purulent drainage. Mass is nonfluctuant. Neuro: COMMON NORMALS: patient oriented x3 SENSORIUM/ORIENTATION: Yes alert GAIT: Yes Normal gait present Skin: GENERAL SKIN EXAM: dry skin Course ED course: While nurse was putting in IV on patient he had a syncopal episode. He recovered well after he got some IV fluids. Vital Signs: Vital signs: Vital Signs Temperature 97.6 F 07/06/22 13:13 Pulse Rate 76 07/06/22 18:12 Respiratory Rate 18 07/06/22 18:12 Blood Pressure 131/78 07/06/22 18:12 Pulse Oximetry 96 07/06/22 18:12 Oxygen Delivery Me thod 07/06/22 18:12 [facility] - General Adult Medical Decision Making Patient is a 36-year-old male comes to the ED with right elbow tender mass. Patient was seen at urgent care and the doctor sent patient here to the ED to get IV antibiotics and to be further evaluated. Patient was seen here in the ED July 01 for same complaint and diagnosed with cellulitis and was discharged home on clindamycin. Right elbow mass has not improved and gotten worse. Patient says it gets worse the more active he is and more movement he does with his elbow. The heat and the redness have improved on right elbow. Vitals are stable. Patient appears in no acute distress. Right elbow?firm tender mass approximately 5 cm in diameter. No erythema or warmth. No purulent drainage. Mass is nonfluctuant. Cellulitis appears to be improving but patient still has the tender mass in right elbow. While nurse was putting in IV on patient he had a syncopal episode. He recovered well after he got some IV fluids. Soft tissue ultrasound of the right elbow showed no drainable fluid collection and noted some mild subcutaneous edema with skin thickening. No cystic or solid lesion seen. Head CT showed no acute findings and it was ordered due to syncopal episode. CBC and CMP were unremarkable. First lactic acid was a little elevated 2.6 but that was taken after his syncopal episode and that is likely the cause of his elevation. The second lactic acid drawn went down to 1.6. Patient was given IV antibiotics and steroids and was stable for discharge home. I placed an order with case management for patient to be referred to Ortho for right elbow mass. Patient was diagnosed with mass of right elbow and vasovagal episode. He was discharged home with a prescription for steroid and told to continue taking his previously prescribed antibiotics. Return to ED precautions given. Patient understood and agreed with plan. Lab Data I reviewed the patient's lab results. : 07/06/22 14:39 07/06/22 14:39 Radiology Impressions Soft Tissue Ultrasound 07/06/22 13:35 IMPRESSION: No drainable fluid collections in the area of concern. Head CT 07/06/22 15:32 IMPRESSION: No acute intracranial abnormality. Laboratory Results WBC 7.8 10^3/uL (4.0-10.0) 07/06/22 14:39 RBC 5.34 10^6/uL (4.1-5.3) H 07/06/22 14:39 Hgb 15.5 g/dL (11.7-16.6) 07/06/22 14:39 Hct 47.3 % (42.0-52.0) 07/06/22 14:39 MCV 88.6 fl (80-94) 07/06/22 14:39 MCH 29.0 pg (28.0-34.0) 07/06/22 14:39 MCHC 32.8 g/dL (30.0-36.0) 07/06/22 14:39 RDW 13.2 % (12.1-15.1) 07/06/22 14:39 Plt Count 212 10^3/cmm (130-400) 07/06/22 14:39 MPV 12.6 fL (7.4-10.4) H 07/06/22 14:39 Neut % (Auto) 54.4 % 07/06/22 14:39 Lymph % (Auto) 30.5 % 07/06/22 14:39 [place] % (Auto) 10.5 % 07/06/22 14:39 Eos % (Auto) 3.4 % 07/06/22 14:39 Baso % (Auto) 1.1 % 07/06/22 14:39 Neut # (Auto) 4.25 10^3/uL (1.8-7.7) 07/06/22 14:39 Lymph # (Auto) 2.4 10^3/uL (0.8-4.8) 07/06/22 14:39 [place] # (Auto) 0.8 10^3/uL (0.2-0.9) 07/06/22 14:39 Eos # (Auto) 0.3 10^3/uL (0.0-0.8) 07/06/22 14:39 Baso # (Auto) 0.1 10^3/uL (0.0-0.1) 07/06/22 14:39 Nucleated RBC % (auto) 0 % 07/06/22 14:39 Nucleated RBCs # 0.0 /100WBC 07/06/22 14:39 Sodium 138 mmol/L (136-145) 07/06/22 14:39 Potassium 4.1 mmol/L (3.5-5.1) 07/06/22 14:39 Chloride 99 mmol/L (98-107) 07/06/22 14:39 Carbon Dioxide 27 mmol/L (22-29) 07/06/22 14:39 Anion Gap 16.1 (5-19) 07/06/22 14:39 BUN 9 mg/dL (6-20) 07/06/22 14:39 Creatinine 0.9 mg/dL (0.7-1.2) 07/06/22 14:39 GFR Calculation 95.5 mL/min (90-130) 07/06/22 14:39 Glucose 90 mg/dL (65-115) 07/06/22 14:39 POC Glucose 86 mg/dL (70-110) 07/06/22 14:05 Calculated Osmolality 284 mOsm/kg (285-295) L 07/06/22 14:39 Lactic Acid 2.6 mmol/L (0.5-2.2) H 07/06/22 14:39 Lactic Acid (Sepsis) 1.6 mmol/L (0.5-2.2) 07/06/22 17:18 Calcium 9.6 mg/dL (8.5-10.5) 07/06/22 14:39 Total Bilirubin 0.4 mg/dL (0.15-1.2) 07/06/22 14:39 AST 21 U/L (0-40) 07/06/22 14:39 ALT 27 U/L (0-41) 07/06/22 14:39 Alkaline Phosphatase 77 U/L (40-130) 07/06/22 14:39 C-Reactive Protein 6.2 mg/L (0.0-4.9) H 07/06/22 14:39 Total Protein 7.6 g/dL (6.6-8.7) 07/06/22 14:39 Albumin 4.5 g/dL (3.5-5.2) 07/06/22 14:39 Globulin 3.1 g/dL (1.3-4.6) 07/06/22 14:39 EKG Data EKG 1: EKG interpretation date: 07/06/22 Interpretation: Normal sinus rhythm, 65 bpm, no ST segment elevation or depression seen. Computer generated interpretation: Soft Tissue Ultrasound 07/06/22 13:35 IMPRESSION: No drainable fluid collections in the area of concern. Head CT 07/06/22 15:32 IMPRESSION: No acute intracranial abnormality. Discharge Plan Discharge Patient Disposition: Home Clinical Impression: Mass of right elbow, Vasovagal episode Condition: Stable Prescriptions: New prednisone 20 mg tablet 20 mg PO BID 5 Days Qty: 10 0RF No Action All Day Allergy (cetirizine) 10 mg capsule 10 mg PO DAILY PRN (Reason: Allergy Symptoms) valacyclovir [Valtrex] 500 mg tablet 500 mg PO DAILY clindamycin HCl 300 mg capsule 600 mg PO Q6H 10 Days Qty: 80 0RF hydrocodone-acetaminophen 5-325 mg tablet 1 tab PO Q6H PRN (Reason: pain) 5 Days Qty: 10 0RF cephalexin 500 mg capsule 500 mg PO TID 7 Days Qty: 21 0RF Discharge Orders: Discharge ED (Routine); Ordered 07/06/22 Ordered By: Ramesh Rojo Referrals: Lincoln Ontiveros [Primary Care Provider] - Discharge Diet: Regular Discharge Activity: Increase activity as tolerated Patient Instructions: Syncope (ED) Activity Restrictions/Additional Instructions: Follow-up with medical provider as directed. Case management should be contacting you in the next several days to set up an appoint with Ortho for follow-up on right elbow mass. Continue taking your previously prescribed clindamycin until course is complete. Take medications as prescribed. Return to the ER or your medical provider if condition worsens. Please read and understand discharge instructions. Thank you for choosing [facility] for your healthcare needs today. Please realize this is an emergency room and that we are providing you with a medical screening exam and this may not be complete and all inclusive of all the testing and or work up that you may need to determine your ailment or severity of your illness. It is very important that you follow up as instructed or that you return to the Emergency Department should you have concerns or if your condition changes or worsens in any way. Stand Alone Forms: Work/School Release Coding Level of Care Code ED Sql Ssrs Developer for Yassine Fwfazal Exam Comprehensive
[2022-07-06 14:10] LABS: Glucose Point of Care 86 mg/dL (70-110)
[2022-07-06] MEDS: ketorolac 30 mg/mL INJ IVP (14:43)
[2022-07-06 14:45] LABS: Basophils # 0.1 10^3/uL (0.0-0.1); Basophils % 1.1 %; Eosinophils # 0.3 10^3/uL (0.0-0.8); Eosinophils % 3.4 %; Hematocrit 47.3 % (42.0-52.0); Hemoglobin 15.5 g/dL (11.7-16.6); Lymphocytes # 2.4 10^3/uL (0.8-4.8); Lymphocytes % 30.5 %; Mean Corpuscular HGB Conc 32.8 g/dL (30.0-36.0); Mean Corpuscular Volume 88.6 fl (80-94); Mean Platelet Volume 12.6 fL (7.4-10.4); Monocytes # 0.8 10^3/uL (0.2-0.9); Monocytes % 10.5 %; Neutrophils # 4.25 10^3/uL (1.8-7.7); Neutrophils % 54.4 %; Nucleated Red Blood Cells % 0 %; Platelet Count 212 10^3/cmm (130-400); Red Blood Count 5.34 10^6/uL (4.1-5.3); Red Cell Distribution Width 13.2 % (12.1-15.1); White Blood Count 7.8 10^3/uL (4.0-10.0)
[2022-07-06] MEDS: sodium chloride 0.9% 1,000 ML 999 ML IV (14:58)
[2022-07-06] MEDS: cefTRIAXone 2,000 MG in sodium chloride 0.9% (plus) 50 ML 100 MG IV (14:58)
[2022-07-06 15:01] LABS: Lactic Sepsis W/Reflex 2.6 mmol/L (0.5-2.2)
[2022-07-06 15:06] LABS: Alanine Aminotransferase 27 U/L (0-41); Albumin Level 4.5 g/dL (3.5-5.2); Alkaline Phosphatase 77 U/L (40-130); Aspartate Amino Transferase 21 U/L (0-40); Blood Urea Nitrogen 9 mg/dL (6-20); C Reactive Protein 6.2 mg/L (0.0-4.9); Calcium 9.6 mg/dL (8.5-10.5); Carbon Dioxide 27 mmol/L (22-29); Chloride 99 mmol/L (98-107); Creatinine Clr Calc Pharmacy 180.3764; Globulin 3.1 g/dL (1.3-4.6); Glomerular Filtration Rate 95.5 mL/min (90-130); Glucose 90 mg/dL (65-115); Osmolality Calculated 284 mOsm/kg (285-295); Sodium 138 mmol/L (136-145); Total Bilirubin 0.4 mg/dL (0.15-1.2); Total Protein 7.6 g/dL (6.6-8.7)
[2022-07-06 15:11] LABS: Anion Gap 16.1 (5-19); Potassium 4.1 mmol/L (3.5-5.1)
--- NOTE | 2022-07-06 15:32 | CTR_ITS ---
PROCEDURE INFORMATION: Exam: CT Head Without Contrast Exam date and time: 07/06/2022 3:44 PM Age: 36 years old Clinical indication: Syncope and collapse; Additional info: Syncopal episode TECHNIQUE: Imaging protocol: Computed tomography of the head without contrast. Radiation optimization: All CT scans at this facility use at least one of these dose optimization techniques: automated exposure control; mA and/or kV adjustment per patient size (includes targeted exams where dose is matched to clinical indication); or iterative reconstruction. COMPARISON: No relevant prior studies available. RADIATION DOSE METRICS: Total DLP (mGy-cm): 1109.55 FINDINGS: Brain: Normal. No hemorrhage. Unremarkable white matter. No mass effect. Cerebral ventricles: No ventriculomegaly. Normal variant intact cavum septum pellucidum. Paranasal sinuses: Visualized sinuses are unremarkable. No fluid levels. Mastoid air cells: Visualized mastoid air cells are well aerated. Bones/joints: Unremarkable. No acute fracture. Soft tissues: Unremarkable. CT/CT head wo con* [id number] IMPRESSION: No acute intracranial abnormality.
[2022-07-06 16:00] VITALS: BP 130/60; PULSE 79; RESP 18; O2SAT 97
[2022-07-06 16:09] VITALS: BP 130/60; PULSE 79; RESP 18; O2SAT 100
[2022-07-06 16:30] LABS: Reflex Lactate Order REFLEX LACTIC ORDERD
[2022-07-06 17:00] VITALS: BP 129/71; PULSE 76; RESP 20; O2SAT 98
--- NOTE | 2022-07-06 17:33 | ECG_ITS ---
[facility] Test Date: 2022-07-06 Pat Name: Rodríguez Lim Department: Room: Gender: Male Hospital Ward Clerk: : 1985 Requested By: Ramesh Rojo Order Number: [id number] Marita MD: Black Carnes M.D. Measurements Intervals [place] Rate: 65 P: -85 CT: 164 QRS: 70 QRSD: 107 T: 75 QT: 396 QTc: 414 Interpretive Statements SINUS RHYTHM Compared to ECG 11/06/2020 12:04:19 No significant changes Electronically Signed On 07-07-2022 10:35:10 CDT by Black Carnes M.D. [email or web address] Medical/store/NU/[id number] f
[2022-07-06 17:45] LABS: Lactic Acid level (Lactate) 1.6 mmol/L (0.5-2.2)
[2022-07-06 18:12] VITALS: BP 131/78; PULSE 76; RESP 18; O2SAT 96
--- NOTE | 2022-07-07 10:46 | DCPLANNER ---
Addendum entered by Kaylie Silva 07/14/22 07:37: Patient had a follow up appointment scheduled with ortho - patient did attend appointment Addendum entered by Kaylie Silva 07/11/22 09:14: Patient has a follow up appointment scheduled for Tuesday, July 12, 2022 at 11:[address] Gomes at ortho. Clinic will call patient with appointment information. Original Note: marketing production manager had message to schedule a follow up appointment for patient with ortho. marketing production manager sent patients information to the front office staff at ortho. Patients information will be printed and reviewed. Clinic will call patient with appointment information.
== END 2022-07-06 18:26 | disposition home or self-care (01) ==
PROVIDERS: Emergency Provider Physician Assistant; PCP Family Medicine
DX: R55 Syncope and collapse (principal); R22.31 Localized swelling, mass and lump, right upper limb; Z87.891 Personal history of nicotine dependence
CPT/HCPCS: 36415; 36416; 70450; 76882; 80053; 82962; 83605; 85025; 86140; 93005; 96365; 96375; 99285; J0696; J1885; J2930; J7030

== ENCOUNTER → 2022-07-12 11:29 | Outpatient (BNVA) | payer OTHER, SELFPAY | PROVIDERS: PCP Family Medicine; Referring Provider Physician Assistant; Visit Provider Orthopaedic Surgery | DX: R22.31 Localized swelling, mass and lump, right upper limb (principal) | CPT/HCPCS: 73080 ==

== ENCOUNTER 2022-07-13 11:15 | Outpatient (CLI) | payer OTHER, SELFPAY ==
--- NOTE | 2022-07-13 13:00 | CT_ITS ---
WS: [id number] CT ABDOMEN AND PELVIS WITH CONTRAST HISTORY: Intermittent RIGHT lower quadrant pain for years. TECHNIQUE: Imaging performed of the abdomen and pelvis with IV contrast. Single phase imaging of the abdomen. Coronal and sagittal reformats are submitted. All CT scans at [facility] use at [facility] [facility] one of these dose optimization techniques: automated exposure control; mA and/or kV adjustment per patient size (includes targeted exams where dose is matched to clinical indication); or iterative re construction. IV CONTRAST: Omnipaque 350; 95 mL IV. Oral contrast: Yes. DLP: 1520.33 mGy.cm COMPARISON: 07/14/2011, 11/30/2020 Lower thorax: Benign granuloma RIGHT lower lobe. Mildly prominent subcarinal lymph node with partial calcification. 11 mm lymph nodes at the hilar regions. Very similar appearance to the prior CT from 021. Heart is normal size. No hiatal hernia. Liver/biliary system: Normal size with no intrahepatic dilatation. Gallbladder: Normal. No gallstones or wall thickening. No pericholecystic fluid. Pancreas: Normal size pancreas and pancreatic duct. No adjacent inflammation. Spleen: Normal size spleen. No mass or infarct. Adrenal glands: Normal. Right kidney: Normal. Left kidney: Normal. Aorta: Normal. Lymphadenopathy: None. Free fluid: None. GI tract: Normal appearance of the stomach. No small bowel obstruction. No small bowel wall thickenin g. Moderate diffuse constipation. The appendix is normal. No diverticular disease. No obstruction of the colon. Abdominal wall: Unremarkable abdominal wall. No hernia. Pelvis: No free fluid or adenopathy within the pelvis. Bones: Bilateral pars defects at L5. CT/CT abdomen pelvis w con* [id number] IMPRESSION: 1. No acute abdominal or pelvic abnormalities. 2. Normal appendix. 3. Moderate diffuse constipation with no colonic obstruction. 4. No adenopathy or free fluid.
[2022-07-13] MEDS: iohexol 350 mg/mL 100 mL Btl IV (13:11)
[2022-07-13] MEDS: barium sulfate 450 mL Oral Susp PO (13:12)
== END 2022-07-13 11:16 | disposition home or self-care (01) ==
PROVIDERS: PCP Family Medicine; Visit Provider Surgery
DX: S76.219A Strain of adductor muscle, fascia and tendon of unspecified thigh, initial encounter (principal); X58.XXXA Exposure to other specified factors, initial encounter
CPT/HCPCS: 74177

== ENCOUNTER 2022-08-15 09:52 | Emergency (ER) | payer OTHER, SELFPAY ==
[2022-08-15] VITALS (21 sets, daily range): BP systolic 132–156; BP diastolic 66–91; PULSE 72–73; RESP 16; TEMP 37.1; O2SAT 93–98; BMI 42.5
--- NOTE | 2022-08-15 10:16 | W.ED.ALLEREA ---
Documented by User: MINDY Mckeon 08/16/22 07:23 HPI - Allergic Reaction General: Chief complaint: Allergic Reaction Stated complaint: Severe reaction to allergen test, Dr. Sierra sent Time Seen by Provider: 08/15/22 10:10 History of Present Illness: HPI narrative: Patient is a 36-year-old male who comes to the ED with allergic reaction. Patient was at Dr. Sierra's office today getting allergy testing done. Allergy test was administered and afterwards he started getting throat itching and throat tightness. He endorses feeling little short of breath as well. He had a pruritic rash on his body and some left periorbital swelling. He was given 2 rounds of epinephrine there in the ENT office. Last dose of epi was around 9:30 AM. He was also given a dose of prednisone and Benadryl as well. He still having some throat tightening and left periorbital swelling. ENT office told him to come straight to the ER to be evaluated. Associated symptoms: Reports facial swelling; Deny abdominal pain, nausea or vomiting Review of Systems Const: Denies: fever(s), chills or fatigue Eyes: Denies: change in vision or eye discomfort ENMT: Denies: throat pain, odynophagia, nasal discharge or nasal congestion Card: Denies: chest pain, palpitations, edema, swelling of feet/ankles, dyspnea on exertion or orthopnea Resp: Denies: dyspnea, productive cough or non-productive cough GI: Denies: abdominal pain, nausea, vomiting, diarrhea, constipation or hematochezia : Denies: flank pain, difficulty urinating, dysuria or hematuria Musc: Denies: neck pain, back pain or extremity swelling Skin/Breast: Denies: rash or new lesions Neuro: Denies: headache(s), numbness in extremities or weakness in extremities All/Imm: Reports: urticaria, throat swelling and facial swelling PFS ED PFSH: Medical History Anxiety Depression Neuropathy Nodule of left lung Surgical History Hx of inguinal hernia surgery Family History Father Healthy adult Mother Unknown family medical history Social History Smoking and tobacco status: never smoked Alcohol intake: current Alcohol intake frequency: few times a month Marital status: Number of children: 4 Current occupational status: employed History of recent travel: No Physical Exam Const: COMMON NORMALS: patient oriented x3 and alert GENERAL APPEARANCE: cooperative and comfortable HENMT: COMMON NORMALS: normocephalic HEAD & SCALP: normocephalic MOUTH: Normal oral and palatal mucosa present THROAT: posterior oropharynx normal and uvula midline Eye: COMMON NORMALS: Equal, round and reactive pupils present and conjunctivae normal PERIORBITAL: periorbital findings abnormal positive left periorbital swelling CONJUNCTIVA: Yes conjunctivae normal PUPIL: Yes Equal, round and reactive pupils present Neck/C-Spine: COMMON NORMALS: supple GENERAL: Yes normal visual inspection Resp: COMMON NORMALS: normal respiratory effort, No retractions, No use of accessory muscles and clear to auscultation bilaterally AUSCULTATION: clear to auscultation bilaterally Cardio: COMMON NORMALS: regular rate, regular rhythm, S1 normal heart sound present, S2 normal heart sound present, No gallops present (Cardio), No clicks present (Cardio), No murmurs present (Cardio) and Peripheral pulses 2+ throughout RATE: regular rate RHYTHM: regular rhythm HEART SOUNDS: S1 normal heart sound present and S2 normal heart sound present PERIPHERAL PULSES: Peripheral pulses 2+ throughout GI: COMMON NORMALS: Normal to inspection, nondistended, normoactive bowel sounds present, Soft to palpation, non-tender and no masses PALPATION: Yes Soft to palpation : COMMON NORMALS: Yes no CVA tenderness BLADDER/KIDNEY EXAM: Yes no CVA tenderness Back/Pelvis: COMMON NORMALS: no CVA tenderness Extremity: COMMON NORMALS: normal to inspection Neuro: COMMON NORMALS: patient oriented x3 SENSORIUM/ORIENTATION: Yes alert GAIT: Yes Normal gait present Skin: GENERAL SKIN EXAM: dry skin Course ED course: After patient received epinephrine IM and IV 1 L bolus, Solu-Medrol, Benadryl and Pepcid he was monitored for the next 2 hours. His symptoms resolved after IM epi. He had no throat tightening or throat itching after IM epi here in the ED. He had no rebound reaction or any other symptoms while watched for the next 2 hours. Vital Signs: Vital signs: Vital Signs Temperature 98.7 F 08/15/22 10:01 Pulse Rate 73 08/15/22 11:03 Respiratory Rate 16 08/15/22 10:01 Blood Pressure 152/66 08/15/22 13:20 Pulse Oximetry 94 08/15/22 13:16 Oxygen Delivery Me thod 08/15/22 11:03 MDM - Allergic Reaction Medical Decision Making Patient is a 36-year-old male comes to the ED with allergic reaction after being allergy tested at Dr. Carrillo's office. He was complaining of having pruritic rash, throat tightening, throat itching and left periorbital swelling. After patient received epinephrine IM and IV 1 L bolus, Solu-Medrol, Benadryl and Pepcid he was monitored for the next 2 hours. His symptoms resolved after IM epi. He had no throat tightening or throat itching after IM epi here in the ED. He had no rebound reaction or any other symptoms while watched for the next 2 hours. Patient was stable for discharge home and sent with a prescription for EpiPen and some prednisone. Given strict return to ED precautions. Follow-up with your primary care doctor within the next 3 to 5 days for reevaluation. Patient understood and agreed with plan. Discharge Plan Discharge Patient Disposition: Home Clinical Impression: Allergic reaction Qualifiers: Encounter type: initial encounter Qualified Code(s): T78.40XA - Allergy, unspecified, initial encounter Condition: Stable Prescriptions: New EpiPen 2-Robert 0.3 mg/0.3 mL auto-injector 0.3 mg IM Q20M PRN (Reason: anaphylaxis) Qty: 2 0RF Rx Instructions: for 3 doses No Action All Day Allergy (cetirizine) 10 mg capsule 10 mg PO DAILY PRN (Reason: Allergy Symptoms) valacyclovir [Valtrex] 500 mg tablet 500 mg PO DAILY clindamycin HCl 300 mg capsule 600 mg PO Q6H 10 Days Qty: 80 0RF hydrocodone-acetaminophen 5-325 mg tablet 1 tab PO Q6H PRN (Reason: pain) 5 Days Qty: 10 0RF levetiracetam 500 mg tablet 500 mg PO BID albuterol sulfate 90 mcg/actuation Hfa Aerosol Inhaler 2 puff INHALATION 6XD PRN (Reason: Shortness Of Breath) B Complex Tablet Extended Release 1 tab PO DAILY Discharge Orders: Discharge ED (Routine); Ordered 08/15/22 Ordered By: Ramesh Rojo Referrals: Lincoln Ontiveros [Primary Care Provider] - Discharge Diet: Regular Discharge Activity: Increase activity as tolerated Patient Instructions: Allergic Reaction, Epinephrine Self-Injection Activity Restrictions/Additional Instructions: Follow-up with medical provider as directed in the next 3-5 days for reevaluation. Take medications as prescribed. Return to the ER or your medical provider if condition worsens. Please read and understand discharge instructions. Thank you for choosing [facility] for your healthcare needs today. Please realize this is an emergency room and that we are providing you with a medical screening exam and this may not be complete and all inclusive of all the testing and or work up that you may need to determine your ailment or severity of your illness. It is very important that you follow up as instructed or that you return to the Emergency Department should you have concerns or if your condition changes or worsens in any way. Coding Level of Care Code ED Garnett Machine Operator Helper for Chg Fwd Exam Comprehensive Documented by User: Jefferson Gonzalez DO 08/18/22 06:21 HPI - Allergic Reaction General: Chief complaint: Allergic Reaction Stated complaint: Severe reaction to allergen test, Dr. Sierra sent Time Seen by Provider: 08/15/22 10:10 [facility] ED PFSH: Medical History Anxiety Depression Neuropathy Nodule of left lung Surgical History Hx of inguinal hernia surgery Family History Father Healthy adult Mother Unknown family medical history Social History Smoking and tobacco status: never smoked Alcohol intake: current Alcohol intake frequency: few times a month Marital status: Number of children: 4 Current occupational status: employed History of recent travel: No Course Vital Signs: Vital signs: Vital Signs Temperature 98.7 F 08/15/22 10:01 Pulse Rate 73 08/15/22 11:03 Respiratory Rate 16 08/15/22 10:01 Blood Pressure 152/66 08/15/22 13:20 Pulse Oximetry 94 08/15/22 13:16 Oxygen Delivery Me thod 08/15/22 11:03 MDM - Allergic Reaction Medical Decision Making Patient is a 36-year-old male comes to the ED with allergic reaction after being allergy tested at Dr. Carrillo's office. He was complaining of having pruritic rash, throat tightening, throat itching and left periorbital swelling. After patient received epinephrine IM and IV 1 L bolus, Solu-Medrol, Benadryl and Pepcid he was monitored for the next 2 hours. His symptoms resolved after IM epi. He had no throat tightening or throat itching after IM epi here in the ED. He had no rebound reaction or any other symptoms while watched for the next 2 hours. Patient was stable for discharge home and sent with a prescription for EpiPen and some prednisone. Given strict return to ED precautions. Follow-up with your primary care doctor within the next 3 to 5 days for reevaluation. Patient understood and agreed with plan. Chart reviewed and patient discussed with midlevel. Agree with assessment and plan. Discharge Plan Discharge Patient Disposition: Home Clinical Impression: Allergic reaction Qualifiers: Encounter type: initial encounter Qualified Code(s): T78.40XA - Allergy, unspecified, initial encounter Condition: Stable Prescriptions: New EpiPen 2-Robert 0.3 mg/0.3 mL auto-injector 0.3 mg IM Q20M PRN (Reason: anaphylaxis) Qty: 2 0RF Rx Instructions: for 3 doses No Action All Day Allergy (cetirizine) 10 mg capsule 10 mg PO DAILY PRN (Reason: Allergy Symptoms) valacyclovir [Valtrex] 500 mg tablet 500 mg PO DAILY clindamycin HCl 300 mg capsule 600 mg PO Q6H 10 Days Qty: 80 0RF hydrocodone-acetaminophen 5-325 mg tablet 1 tab PO Q6H PRN (Reason: pain) 5 Days Qty: 10 0RF levetiracetam 500 mg tablet 500 mg PO BID albuterol sulfate 90 mcg/actuation Hfa Aerosol Inhaler 2 puff INHALATION 6XD PRN (Reason: Shortness Of Breath) B Complex Tablet Extended Release 1 tab PO DAILY Discharge Orders: Discharge ED (Routine); Ordered 08/15/22 Ordered By: Ramesh Rojo Referrals: Lincoln Ontiveros [Primary Care Provider] - Discharge Diet: Regular Discharge Activity: Increase activity as tolerated Patient Instructions: Allergic Reaction, Epinephrine Self-Injection Activity Restrictions/Additional Instructions: Follow-up with medical provider as directed in the next 3-5 days for reevaluation. Take medications as prescribed. Return to the ER or your medical provider if condition worsens. Please read and understand discharge instructions. Thank you for choosing [facility] for your healthcare needs today. Please realize this is an emergency room and that we are providing you with a medical screening exam and this may not be complete and all inclusive of all the testing and or work up that you may need to determine your ailment or severity of your illness. It is very important that you follow up as instructed or that you return to the Emergency Department should you have concerns or if your condition changes or worsens in any way. Coding Level of Care Code ED Garnett Machine Operator Helper for Yassine Wagner Exam Comprehensive
[2022-08-15] MEDS: sodium chloride 0.9% 1,000 ML 999 ML IV (10:43)
[2022-08-15] MEDS: famotidine 20 mg/2 mL INJ IVP (10:45)
[2022-08-15] MEDS: EPINEPHrine 1 mg/mL INJ 0.3 MG IM (10:45)
[2022-08-15] MEDS: diphenhydrAMINE 50 mg/mL SDV 1mL IVP (10:45)
== END 2022-08-15 13:15 | disposition home or self-care (01) ==
PROVIDERS: Emergency Provider Physician Assistant; PCP Family Medicine
DX: T78.40XA Allergy, unspecified, initial encounter (principal)
CPT/HCPCS: 96361; 96372; 96374; 96375; 99284; J0171; J1200; J2930; J3490; J7030

== ENCOUNTER 2022-08-25 10:55 | Day surgery (SDC) | payer OTHER, SELFPAY ==
[2022-08-24 13:31] VITALS: BMI 42.5
[2022-08-25] VITALS (7 sets, daily range): BP systolic 112–153; BP diastolic 71–92; PULSE 14–76; RESP 16–76; TEMP 36.2–36.7; O2SAT 94–98
[2022-08-25] MEDS: sodium chloride 0.9% 1,000 ML 30 ML IV (11:51)
[2022-08-25] MEDS: scopolamine 1.5 Patch 1 PATCH TRANSDERMA (11:51)
--- NOTE | 2022-08-25 12:49 | ANES.PREANE2 ---
Pre-Anesthetic Assessment Height/Weight: Height 1.91 m Weight 154.221 kg Temp Pulse Resp BP Pulse Ox O2 Del Method 97.3 F L 76 18 144/88 94 08/25/22 11:37 08/25/22 11:37 08/25/22 11:37 08/25/22 11:37 08/25/22 11:37 08/25/22 11:38 Preop Diagnosis: Masses right elbow/forearm Operation Date: 08/25/22 12:30 Proposed Procedures p Mass excision of right elbow: [id number],R22.31(Right) - Shawn Gomes MD Familial anesthetic complications: None Was Beta Roma taken within 24 hours: N/A Was Clonidine taken within 24 hours: N/A Last intake: Intake Last Liquid Date 08/24/22 Last Liquid Time 10:30 Last Solid Date 08/24/22 Last Solid Time 20:00 Social No alcohol and No tobacco Exam alert, oriented x 3, clear to auscultation bilaterally and regular rate & rhythm Airway Mallampati: Class IV Dentition: full Metabolic Morbid Obesity Neuropsych Seizure Anesthetic Plan ASA status: 2 Anesthesia: MAC Risk of > 500 ml blood loss (7ml/kg in children): No Medications/Allergies Home Medications Medication Instructions Recorded Confirmed Last Taken Type cetirizine 10 mg capsule (All Day 10 mg PO DAILY PRN Allergy Symptoms 07/02/21 08/25/22 08/23/22 History Allergy (cetirizine)) valacyclovir 500 mg tablet 500 mg PO DAILY 04/04/22 08/25/22 08/24/22 History (Valtrex) albuterol sulfate 90 mcg/actuation 2 puff inhalation 6XD PRN 08/15/22 08/24/22 Unknown History aerosol inhaler Shortness Of Breath epinephrine 0.3 mg/0.3 mL 0.3 mg (0.3 mL) IM Q20M PRN 08/15/22 08/24/22 Unknown Rx injection, auto-injector (EpiPen anaphylaxis #2 ea 2-Robert) levetiracetam 500 mg tablet 500 mg PO BID 08/15/22 08/25/22 08/24/22 History vitamin B complex 1 tab PO DAILY 08/15/22 08/25/22 08/24/22 History Allergies Allergy/AdvReac Type Severity Reaction Status Date / Time Penicillins Allergy Severe throat Verified 08/15/22 10:58 swelling and rash fentanyl Allergy ADR-Swelling Verified 08/15/22 10:58 of the Eye sulfamethoxazole Allergy ALGY-Swell Verified 08/24/22 13:29 [From Bactrim] Lip/Tongue/Throat trimethoprim [From Bactrim] Allergy ALGY-Swell Verified 08/24/22 13:29 Lip/Tongue/Throat Current Medications Generic Name Dose Route Start Last Admin Trade Name Freq PRN Reason Stop Dose Admin Sodium Chloride 1,000 mls @ 30 mls/hr 08/25/22 11:15 08/25/22 11:51 Sodium Chloride 0.9% IV 08/26/22 11:14 30 mls/hr .Q24H MIKAEL Administration PFSH Anesthesia Medical History Anxiety Depression Neuropathy Nodule of left lung Surgical History Hx of inguinal hernia surgery Family History Father Healthy adult Mother Unknown family medical history Social History Smoking and tobacco status: never smoked Alcohol intake: current Alcohol intake frequency: few times a month Marital status: Number of children: 4 Current occupational status: employed History of recent travel: No Data Anesthesia Cardiac Studies: No Data to Display
--- NOTE | 2022-08-25 13:17 | W.PM.OPSUD ---
Surgery/Procedure H&P Update DATE OF PROCEDURE: August 25, 2022 DATE H&P PERFORMED: 08/09/22 H&P UPDATE INFORMATION: I have reviewed H&P completed within last 30 days PREOP DIAGNOSIS: Masses right elbow/forearm PLANNED PROCEDURE: Operation Date: 08/25/22 12:30 Proposed Procedures p Mass excision of right elbow: [id number],R22.31(Right) - Shawn Gomes MD
[2022-08-25] MEDS: clindamycin 600 MG/50 ML PREMIX 100 MG IV (13:58)
--- NOTE | 2022-08-25 14:47 | P.OP_ITS ---
Operative Report Date of procedure: August 25, 2022 Pre-op diagnosis: Preop Diagnosis Masses right elbow Post-op diagnosis: same Procedure done: Excision mass right elbow Specimens removed/disposition: Lipomatous mass was removed and sent to pathology Pathology: none sent Surgeon: Shawn Gomes Anesthesia: MAC Estimated blood loss (mL): 0 Tourniquet time (min): 21 Findings: The patient had a lipomatous mass over the right arm just proximal to the elbow. It was within the subcutaneous fatty tissue and superficial to the medial fascia. The ulnar nerve was clearly palpable beneath and not involved. The mass itself measured approximately 1 cm in diam Condition: stable Disposition: PACU Procedure: The patient was taken to the op the patient was taken to the operating room and sedation was provided by anesthesia. The right arm was prepped and draped in the usual fashion. A timeout was performed. Tourniquet was inflated to 250 mmHg. 3 cm long incision was made over the proximal medial elbow. Dissection was c arried down under loupe magnification or a palpable accumulation of fat most likely consistent with a poorly demarcated lipoma was identified. This bulky fibrotic fat was excised and block. The ulnar nerve could be palpable behind the medial epicondyle and proximally. Throughout a range of motion it was felt to be stable behind the medial epicondyle. The remaining superficial tissues were palpated and no clear mass was identified. The wound was irrigated with saline. Deep tissues were closed with 2-0 Vicryl. The skin was closed with 3-0 Prolene. Xeroflo gauze 4 x 4's web roll and Andres wrap were applied. The patient was placed in a sling. The tourniquet was deflated.
[2022-08-25] MEDS: HYDROcodone-acetaminophen 5-325 mg Tablet 1 TAB PO (15:29)
--- NOTE | 2022-08-25 16:00 | ANE.PACU2 ---
Inpatient post-anesthesia follow up: Airway intact: Yes Vital signs: Temperature 97.1 F Pulse Rate 71 Respiratory Rate 16 Blood Pressure 112/73 Pulse Oximetry 96 Oxygen Delivery Me thod Room Air Oxygen Flow Rate Fraction of Inspir ed Oxygen Hydration adequate: Yes Nausea and vomiting: No Pain level: 1 Mental status: Baseline
== END 2022-08-25 15:47 | disposition home or self-care (01) ==
PROVIDERS: PCP Family Medicine; Visit Provider Orthopaedic Surgery
PROC: (CPT 11401; principal; 2022-08-25 12:20)
DX: M27.1 Giant cell granuloma, central (principal); E66.01 Morbid (severe) obesity due to excess calories; Z68.41 Body mass index [BMI] 40.0-44.9, adult; F41.9 Anxiety disorder, unspecified; F32.A Depression, unspecified
CPT/HCPCS: 11401; 12031; 88309; J2250; J2704; J3010; J3490; J7030

== ENCOUNTER 2022-08-31 08:57 | Outpatient (CLI) | payer OTHER, SELFPAY ==
--- NOTE | 2022-08-31 09:04 | MR_ITS ---
WS: [id number] MRI HEAD WITH CONTRAST TECHNIQUE: Sagittal T1, T2 axial, T2 axial FLAIR, axial susceptibility weighted imaging, axial diffus ion weighted images, and coronal T2 images were obtained. Pre and post-T1 axial and post T1 coronal i mages. ADC and FSPGR images. CLINICAL INFORMATION: SEIZURES/ABNORMAL CT OF BRAIN COMPARISON: CT July 06, 2022 FINDINGS: No evidence of restricted diffusion to suggest acute ischemia. Ventricular system and basal cisterns are patent. Mild patchy supratentorial white matter changes. No significant parenchymal volume loss. Incidental cavum septum pellucidum. Small amount of gliosis in the RIGHT occipital lobe. Punctate foc i of T2 signal abnormality mainly in the bilateral frontal periventricular and subcortical white josie er. Normal posterior fossa. Normal vascular flow voids at the skull base. No extra-axial fluid collection s. No evidence of mass or mass effect. Mild mucosal thickening paranasal sinuses. Mastoid air cells a re well aerated. No hemosiderin on the susceptibly weighted images. Normal optic chiasm and pituitary infundibulum. No rmal cavernous sinuses and Meckel's cave. Temporal lobes and hippocampal formations are normal in kenzie earance.No abnormal intracranial enhancement. Normal dural venous sinuses. MR/MR head wo/w con [id number] IMPRESSION: 1. No evidence of restricted diffusion to suggest acute ischemia. 2. Punctate foci of T2 hyperintensity in the periventricular and subcortical w shay matter mainly in the frontal lobes nonspecific in a patient this age but c an be seen with migraine headaches. No significant parenchymal volume loss. 3. No abnormal gadolinium enhancement. 4. No hemosiderin on susceptibly weighted images. 5. Temporal lobes and hippocampal formations are normal in appearance. No evid ence of mesial temporal sclerosis. 6. No other suspicious findings.
== END 2022-08-31 08:58 | disposition home or self-care (01) ==
PROVIDERS: PCP Family Medicine; Visit Provider Family Medicine
DX: R90.89 Other abnormal findings on diagnostic imaging of central nervous system (principal); R56.9 Unspecified convulsions
CPT/HCPCS: 70553; A9577

== ENCOUNTER 2022-10-24 13:40 | Emergency (ER) | payer OTHER, MEDICAID, SELFPAY ==
[2022-10-24 14:27] VITALS: BP 138/94; PULSE 97; RESP 16; TEMP 36.8; O2SAT 97
--- NOTE | 2022-10-24 15:58 | CTR_ITS ---
PROCEDURE INFORMATION: Exam: CT Head Without Contrast Exam date and time: 10/24/2022 4:02 PM Age: 37 years old Clinical indication: Injury or trauma; Fall; Blunt trauma (contusions or hematomas); Additional info: Head injury/headache TECHNIQUE: Imaging protocol: Computed tomography of the head without contrast. Radiation optimization: All CT scans at this facility use at least one of these dose optimization techniques: automated exposure control; mA and/or kV adjustment per patient size (includes targeted exams where dose is matched to clinical indication); or iterative reconstruction. COMPARISON: MR head wo/w con [id number] 08/31/2022 9:39 AM RADIATION DOSE METRICS: Total DLP (mGy-cm): 1171.9 FINDINGS: Brain: Normal. No hemorrhage. Unremarkable white matter. No mass effect. Cerebral ventricles: Normal variant intact cavum septum pellucidum and et vergae. No ventriculomegaly. Paranasal sinuses: Visualized sinuses are unremarkable. No fluid levels. Mastoid air cells: Visualized mastoid air cells are well aerated. Bones/joints: Unremarkable. No acute fracture. Soft tissues: Unremarkable. CT/CT head wo con* [id number] IMPRESSION: No acute intracranial abnormality.
--- NOTE | 2022-10-24 15:58 | ED_ITS ---
HPI - Headache General: Chief Complaint: Headache Stated Complaint: migraine Time Seen by Provider: 10/24/22 15:22 Source: patient Mode of arrival: ambulatory Limitations: no limitations History of Present Illness: Patient is a 37-year-old male who presents to ED today with a complaint of head and neck pain. He states approximately a week ago he accidentally fell going down a flight of stairs and struck his posterior neck on the edge of a stair and then struck the back of his head. He is reporting questionable LOC. He states since then he has had headache and neck pain. He states he does have a history of migraine headaches and states his symptoms feel similar just worse in severity. He states pain is worse with light and sound. MD elicited complaint: headache Pertinent past history: recent trauma Onset (ago): day(s) Location: occipital Severity: severe Pain scale (0-10): 8 Exacerbating factors: light and noise Associated symptoms: Deny chest pain, confusion, fever(s), malaise or rash Review of Systems Const: Denies: fever(s), chills, body aches, fatigue or malaise Eyes: Denies: change in vision, blurry vision, photophobia, floaters or seeing flashes Card: Denies: chest pain Resp: Denies: dyspnea GI: Denies: abdominal pain Musc: Reports: neck pain; Denies: back pain, extremity pain or joint pain Skin/Breast: Denies: rash Neuro: Reports: headache(s); Denies: numbness in extremities, weakness in extremities, sensory changes, vertigo, confusion, behavioral changes, Slurred speech present or seizure-like activity COUNTS INCLUDE 234 BEDS AT THE [facility] ED PFSH: Medical History Anxiety Depression Neuropathy Nodule of left lung Surgical History Hx of inguinal hernia surgery Family History Father Healthy adult Mother Unknown family medical history Social History Smoking and tobacco status: never smoked Alcohol intake: current Alcohol intake frequency: few times a month Marital status: Number of children: 4 Current occupational status: employed History of recent travel: No Physical Exam Const: COMMON NORMALS: no acute distress, patient oriented x3, no limitations and alert GENERAL APPEARANCE: cooperative NUTRITIONAL APPEARANCE: overweight ORIENTATION/CONSCIOUSNESS: Yes awake, Yes oriented to person, Yes oriented to place and Yes oriented to time HENMT: COMMON NORMALS: normocephalic and atraumatic HEAD & SCALP: normal to inspection, normocephalic and atraumatic FACE & SINUS: normal facial exam Eye: GENERAL EYE: appearance normal, both eyes and all related structures Neck/C-Spine: GENERAL: Yes normal visual inspection CERVICAL SPINE: Yes pain with cervical ROM, Yes Cervical spine tenderness, No step off deformity and No Paracervical muscle tenderness Resp: COMMON NORMALS: normal respiratory effort Cardio: COMMON NORMALS: regular rate and regular rhythm RATE: regular rate RHYTHM: regular rhythm Back/Pelvis: COMMON NORMALS: thoracic and lumbar spine normal to inspection, no thoracic nor lumbar tenderness and thoraco-lumbar ROM normal Extremity: COMMON NORMALS: normal to inspection GENERAL: Yes normal exam except as noted Neuro: ROCIO COMA SCALE: document GCS findings Rocio coma scale eye opening: Spontaneous [place] coma scale verbal response: Orientated Rocio coma scale motor response: Obey commands Rocio coma scale total score: 15 COMMON NORMALS: patient oriented x3, CN's II-XII intact bilaterally, moves all extremities, no focal motor deficits, no sensory deficits noted and gait normal SENSORIUM/ORIENTATION: Yes alert, Yes oriented to person, Yes oriented to place and Yes oriented to time Skin: COMMON NORMALS: no rashes or lesions noted GENERAL SKIN EXAM: no rashes or lesions noted Course Vital Signs: Vital signs: Vital Signs Temperature 98.3 F 10/24/22 14:27 Pulse Rate 80 10/24/22 18:11 Respiratory Rate 15 10/24/22 18:11 Blood Pressure 138/90 10/24/22 18:11 Pulse Oximetry 97 10/24/22 18:11 Oxygen Delivery Me thod 10/24/22 18:11 MDM - Headache Medical Decision Making Due to history of trauma CTs ordered which were negative. MEDEROS improved with fluids/medication cocktail. He feels comfortable going home at this time. Strict return to ED precautions given. Otherwise I would like him to follow up with PCP in 2-3 days. Lab Data Radiology Impressions Cervical Spine CT 10/24/22 15:58 IMPRESSION: No acute findings. Head CT 10/24/22 15:58 IMPRESSION: No acute intracranial abnormality. Discharge Plan Discharge Patient Disposition: Home Clinical Impression: Migraine Qualifiers: Migraine type: without aura Status migrainosus presence: without status migrainosus Intractability: not intractable Qualified Code(s): G43.009 - Migraine without aura, not intractable, without status migrainosus Condition: Stable Prescriptions: No Action All Day Allergy (cetirizine) 10 mg capsule 10 mg PO DAILY PRN (Reason: Allergy Symptoms) valacyclovir [Valtrex] 500 mg tablet 500 mg PO DAILY hydrocodone-acetaminophen 5-325 mg tablet 1 tab PO Q4H Qty: 15 0RF levetiracetam 500 mg tablet 500 mg PO BID albuterol sulfate 90 mcg/actuation Hfa Aerosol Inhaler 2 puff INHALATION 6XD PRN (Reason: Shortness Of Breath) vitamin B complex Tablet Extended Release 1 tab PO DAILY epinephrine [EpiPen 2-Robert] 0.3 mg/0.3 mL auto-injector 0.3 mg IM Q20M PRN (Reason: anaphylaxis) Qty: 2 0RF Rx Instructions: for 3 doses Discharge Orders: Discharge ED (Routine); Ordered 10/24/22 Ordered By: Wandy Marshall Referrals: Lincoln Ontiveros [Primary Care Provider] - Coding Level of Care Code ED Child Caregiver for Chg Fwd Exam Comprehensive
--- NOTE | 2022-10-24 15:58 | CTR_ITS ---
PROCEDURE INFORMATION: Exam: CT Cervical Spine Without Contrast Exam date and time: 10/24/2022 4:02 PM Age: 37 years old Clinical indication: Injury or trauma; Fall; Blunt trauma; Injury details: Fell last week on steps, hit posterior side of head; Additional info: Fall/injury/pain TECHNIQUE: Imaging protocol: Computed tomography of the cervical spine without contrast. Radiation optimization: All CT scans at this facility use at least one of these dose optimization techniques: automated exposure control; mA and/or kV adjustment per patient size (includes targeted exams where dose is matched to clinical indication); or iterative reconstruction. COMPARISON: MR head wo/w con [id number] 08/31/2022 9:39 AM RADIATION DOSE METRICS: Total DLP (mGy-cm): 297.3 FINDINGS: Bones/joints: No acute fracture. Normal alignment. No significant disc protrusion. No severe spinal canal stenosis. Lungs: Lung apices are normal. Soft tissues: Unremarkable. CT/CT cervical spin wo con* [id number] IMPRESSION: No acute findings.
[2022-10-24] MEDS: diphenhydrAMINE 50 mg/mL SDV 1mL IVP (16:30)
[2022-10-24] MEDS: ketorolac 30 mg/mL INJ IVP (16:30)
[2022-10-24] MEDS: ondansetron 2 mg/ML SDV 2 mL 4 MG IVP (16:30)
[2022-10-24] MEDS: sodium chloride 0.9% 1,000 ML 999 ML IV (16:34)
[2022-10-24] MEDS: dexamethasone 10 mg/mL INJ 6 MG IVP (17:04)
[2022-10-24 18:11] VITALS: BP 138/90; PULSE 80; RESP 15; O2SAT 97
== END 2022-10-24 18:06 | disposition home or self-care (01) ==
PROVIDERS: Emergency Provider Physician Assistant; PCP Family Medicine
DX: G43.009 Migraine without aura, not intractable, without status migrainosus (principal)
CPT/HCPCS: 70450; 72125; 96361; 96374; 96375; 99285; J1100; J1200; J1885; J2405; J7030

== ENCOUNTER 2022-11-08 11:29 | Emergency (ER) | payer OTHER, SELFPAY ==
[2022-11-08 11:33] VITALS: BP 156/107; PULSE 88; RESP 20; TEMP 36.6; O2SAT 97; BMI 45.2
--- NOTE | 2022-11-08 11:45 | W.ED.HA ---
HPI - Headache General: Chief Complaint: Headache Stated Complaint: chest pain Time Seen by Provider: 11/08/22 11:45 Source: patient Mode of arrival: ambulatory History of Present Illness: 37-year-old male with a history of migraine. Comes in complaining of migraine type he reports last couple weeks he relates began when he hit his head when he fell back on the October 16 he was seen after that CTA head and neck were both unremarkable. He may come into the triage nurse after swallowing at C5-C6 however there is no notation in the CT report regarding this. He was seen at urgent care today and the nurse practitioner made comments notes that he had not filled some medications that been prescribed for his headache he had not taken anything at all for his headache recently. He reports that his eyes swell but he only notes that it happens when the headache worsens. His was concerned that in acidic soaps he uses may be precipitating his migraines. He has photophobia and autophobia but no other symptoms with his headache. Headache localizes to the left side. MD elicited complaint: migraine Severity: moderate Quality & Timing: throbbing Exacerbating factors: light and noise Relieving factors: nothing Associated symptoms: Deny chest pain, confusion, cough, diaphoresis, eye pain, eye redness, fever(s), lightheadedness, loss of vision, malaise, nausea, neck stiffness, numbness, paresthesias, photophobia, pre-syncope, rash, seizures, short of breath, sound sensitivity, syncope, vomiting or weakness Treatments prior to arrival: none Review of Systems Const: Denies: fever(s), chills, fatigue, malaise or diaphoresis ENMT: Denies: throat pain, ear or mastoid pain, nasal discharge or nasal congestion Card: Denies: chest pain, lightheadedness, syncope or pre-syncope Resp: Denies: dyspnea, productive cough or non-productive cough GI: Denies: abdominal pain, nausea or vomiting : Denies: flank pain, dysuria, urinary frequency or urinary urgency Skin/Breast: Denies: rash Neuro: Reports: headache(s); Denies: confusion PFS ED PFSH: Medical History Anxiety Depression Neuropathy Nodule of left lung Surgical History Hx of inguinal hernia surgery Family History Father Healthy adult Mother Unknown family medical history Social History Smoking and tobacco status: never smoked Alcohol intake: current Alcohol intake frequency: few times a month Marital status: Number of children: 4 Current occupational status: employed History of recent travel: No Physical Exam Const: GENERAL APPEARANCE: cooperative and comfortable ORIENTATION/CONSCIOUSNESS: Yes awake, Yes oriented to person, Yes oriented to place and Yes oriented to time HENMT: COMMON NORMALS: normocephalic, atraumatic and hearing grossly normal bilaterally HEAD & SCALP: normocephalic and atraumatic Eye: COMMON NORMALS: Equal, round and reactive pupils present, EOMs intact bilaterally, conjunctivae normal and no scleral icterus CONJUNCTIVA: Yes conjunctivae normal PUPIL: Yes Equal, round and reactive pupils present DIRECT OPHTHALMOSCOPY: No photophobia Neck/C-Spine: COMMON NORMALS: full ROM, no lymphadenopathy, supple and no JVD Resp: COMMON NORMALS: normal respiratory effort, No retractions, No use of accessory muscles and clear to auscultation bilaterally AUSCULTATION: clear to auscultation bilaterally Cardio: COMMON NORMALS: no JVD, regular rate, regular rhythm and No murmurs present (Cardio) RATE: regular rate RHYTHM: regular rhythm GI: COMMON NORMALS: Soft to palpation and No hepatosplenomegaly present AUSCULTATION: Yes normoactive bowel sounds PALPATION: Yes Soft to palpation, No Tenderness to palpation present (GI), No Guarding due to palpation present (GI) and Yes No hepatosplenomegaly present Extremity: COMMON NORMALS: normal to inspection, capillary refill normal, no clubbing, cyanosis or edema, no calf tenderness and no pedal edema Neuro: SENSORIUM/ORIENTATION: Yes oriented to person, Yes oriented to place and Yes oriented to time Skin: COMMON NORMALS: no rashes or lesions noted GENERAL SKIN EXAM: no rashes or lesions noted Course Vital Signs: Vital signs: Vital Signs Temperature 97.8 F 11/08/22 11:33 Pulse Rate 75 11/08/22 12:36 Respiratory Rate 14 11/08/22 12:36 Blood Pressure 151/86 11/08/22 12:36 Pulse Oximetry 94 11/08/22 12:36 Oxygen Delivery Me thod 11/08/22 12:36 MDM - Headache Medical Decision Making Headache improved with treatment in the emergency room. Symptoms much better. We will discharge patient home have him continue his previously prescribed medications for migraine follow-up with primary care return if is further problems. Medical Records I reviewed the patient's medical records. Lab Data I reviewed the patient's lab results. Discharge Plan Discharge Patient Disposition: Home Clinical Impression: Migraine Condition: Stable Prescriptions: No Action All Day Allergy (cetirizine) 10 mg capsule 10 mg PO DAILY hydrocodone-acetaminophen 5-325 mg tablet 1 tab PO Q4H Qty: 15 0RF levetiracetam 500 mg tablet 500 mg PO BID albuterol sulfate 90 mcg/actuation Hfa Aerosol Inhaler 2 puff INHALATION 6XD PRN (Reason: Shortness Of Breath) vitamin B complex Tablet Extended Release 1 tab PO DAILY epinephrine [EpiPen 2-Robert] 0.3 mg/0.3 mL auto-injector 0.3 mg IM Q20M PRN (Reason: anaphylaxis) Qty: 2 0RF Rx Instructions: for 3 doses Discharge Orders: Discharge ED (Routine); Ordered 11/08/22 Ordered By: Jefferson Gonzalez Referrals: Lincoln Ontiveros [Primary Care Provider] - Discharge Diet: Usual diet Discharge Activity: Increase activity as tolerated Patient Instructions: Opioid Safety, Pain Management Activity Restrictions/Additional Instructions: You were seen today for a migraine. Use medications previously prescribed by your primary care doctor for relief of your migraines. Coding Level of Care Code ED Auto Painter Helper for Chg Fwd Exam Comprehensive
[2022-11-08] MEDS: promethazine 25 mg/mL SDV 1 mL IM (12:16)
[2022-11-08] MEDS: ketorolac 30 mg/mL INJ IVP (12:17)
[2022-11-08] MEDS: valproic acid inj 500 MG in sodium chloride 0.9% 50 ML 55 MG IV (12:17)
[2022-11-08] MEDS: sodium chloride 0.9% 1,000 ML 999 ML IV (12:18)
[2022-11-08 12:36] VITALS: BP 151/86; PULSE 75; RESP 14; O2SAT 94
== END 2022-11-08 14:56 | disposition home or self-care (01) ==
PROVIDERS: Emergency Provider Family Medicine; PCP Family Medicine
DX: G43.909 Migraine, unspecified, not intractable, without status migrainosus (principal)
CPT/HCPCS: 96365; 96372; 96375; 99284; J1885; J2550; J3490; J7030

== ENCOUNTER 2023-01-21 19:19 | Emergency (ER) | payer MEDICAID, SELFPAY ==
[2023-01-21 19:35] VITALS: BP 136/93; PULSE 95; RESP 14; TEMP 36.9; O2SAT 98; BMI 45.0
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
[2023-01-21] MEDS: sodium chloride 0.9% 500 ML 999 ML IV (20:40)
[2023-01-21] MEDS: metoclopramide 5 mg/mL SDV 2 mL 10 MG IVP (20:42)
[2023-01-21] MEDS: dexamethasone 10 mg/mL INJ IVP (20:42)
[2023-01-21] MEDS: ketorolac 30 mg/mL INJ 15 MG IVP (20:43)
[2023-01-21 21:04] VITALS: BP 131/76; PULSE 95; RESP 18; O2SAT 96
== END 2023-01-21 21:51 | disposition home or self-care (01) ==
PROVIDERS: Emergency Provider Nurse Practitioner Family; PCP Family Medicine
DX: G43.909 Migraine, unspecified, not intractable, without status migrainosus (principal); G44.89 Other headache syndrome; F07.81 Postconcussional syndrome
CPT/HCPCS: 70450; 96361; 96374; 96375; 99285; J1100; J1885; J2765; J7040

== ENCOUNTER 2023-06-19 12:03 | Outpatient (CLI) | payer MEDICAID, SELFPAY ==
--- NOTE | 2023-06-19 12:16 | XR_ITS ---
WS: [id number] Exam: XR lumbar spine f/e only [id number] Date/Time of Exam: 06/19/2023 12:30 PM Reason For Exam: SPONDYLOLISTHESIS,LUMBAR REGION There is a pars interarticularis defect of L5 with approximately 5 mm anterolisthesis of L5 on S1. Th is does not appear to significantly change during flexion or extension. Disc spaces are preserved at all levels. The remaining posterior elements are intact. IMPRESSION: 1. Pars defect of L5 with 5 mm anterolisthesis of L5 on S1. No significant change between flexion and extension. 2. The remaining aspects of the lumbar spine are unremarkable.
== END 2023-06-19 12:04 | disposition home or self-care (01) ==
PROVIDERS: PCP Family Medicine; Visit Provider Nurse Practitioner
DX: M43.16 Spondylolisthesis, lumbar region (principal)
CPT/HCPCS: 72120

== ENCOUNTER 2023-09-08 14:37 | Outpatient (CLI) | payer MEDICAID, SELFPAY ==
--- NOTE | 2023-09-08 14:47 | MR_ITS ---
WS: [id number] MRI LUMBAR SPINE NONCONTRAST HISTORY: VERTEBROGENIC LOW BACK PAIN COMPARISON: None available. TECHNIQUE: Sagittal and axial multisequence imaging is submitted. Normal lumbar alignment with no compression fractures or marrow edema. Minimal disc desiccation at L2-3. No marrow edema or fracture. Conus terminates normally at L1-2 disc level. L1-L2: Normal. L2-L3: Mild annular disc bulging and facet arthritis. L3-L4: Mild annular disc bulging encroaching upon the ventral thecal sac. Mild encroachment upon the subarticular recesses greatest on the RIGHT. Mild RIGHT subarticular and RIGHT foraminal stenosis. L4-L5: Mild facet and ligamentum flavum arthritis. Mild bilateral foraminal stenosis. L5-S1: Mild annular disc bulging with a central disc protrusion. Mild osteophytic ridging and bilater al facet joint arthritis encroaching towards the thecal sac. Facet joint arthritis does contact the n erve roots in the thecal sac. Mild central, bilateral subarticular recess and moderate bilateral fora leticia stenosis, LEFT greater than RIGHT. IMPRESSION: 1. Moderate bilateral foraminal stenosis at L5-S1, LEFT greater than RIGHT. Most significant encroach ment upon the LEFT L5 and S1 nerve roots. 2. Mild central, bilateral subarticular recess and moderate foraminal stenosis at L5-S1. 3. Mild bilateral foraminal stenosis at L4-5. 4. Mild RIGHT subarticular recess and foraminal stenosis at L3-4 due to disc encroachment.
== END 2023-09-08 14:38 | disposition home or self-care (01) ==
LOC: RAD 14:38
PROVIDERS: PCP Family Medicine; Visit Provider Anesthesiology Pain Medicine
DX: M54.51 Vertebrogenic low back pain (principal); M48.061 Spinal stenosis, lumbar region without neurogenic claudication; M47.817 Spondylosis without myelopathy or radiculopathy, lumbosacral region; M51.37 Other intervertebral disc degeneration, lumbosacral region
CPT/HCPCS: 72148

== ENCOUNTER 2023-10-14 13:34 | Emergency (ER) | payer MEDICAID, SELFPAY ==
[2023-10-14 13:37] VITALS: BP 137/86; PULSE 71; RESP 18; TEMP 36.4; O2SAT 97; BMI 43.7
[2023-10-14 15:00] VITALS: BP 152/66; PULSE 73; O2SAT 94
--- NOTE | 2023-10-14 15:16 | ED_ITS ---
HPI - Neck Pain/Injury 2 General: Chief Complaint: Neck Pain/Injury Stated Complaint: neck pain Time Seen by Provider: 10/14/23 15:06 History of Present Illness: Patient presents to the ER with a headache and neck pain. Patient states he got epidural steroid shot in his low back on Monday by Dr. Enciso in the pain clinic and has pain more or less ever since then. The pain is worsening. The pain is improved when the patient lies down but does not go away and the pain is worse when the patient sits up or moves. Patient has been trying to drink lots of water and caffeine but this has not helped. Review of Systems 2 General: Reports: 10 or more systems reviewed and unremarkable except in HPI and below PFSH ED 2 PFSH: Medical History Nodule of left lung Neuropathy Anxiety Depression Surgical History Hx of inguinal hernia surgery Family History Father Healthy adult Mother Unknown family medical history Social History Smoking and tobacco/nicotine status: never used tobacco/nicotine Alcohol intake: current Alcohol intake frequency: few times a month Substance/Drug Use: never Marital status: Number of children: 4 Current occupational status: employed Physical Exam 2 Const: COMMON NORMALS: no acute distress, average body habitus, patient oriented x3, no limitations, healthy appearing, alert and well nourished HENMT: COMMON NORMALS: normocephalic, atraumatic, hearing grossly normal bilaterally, external ears normal, Normal external nose present, moist oral mucous membranes and oropharynx normal HEAD & SCALP: normocephalic and atraumatic NOSE: Normal external nose present EXTERNAL EAR: Yes external ears normal Eye: COMMON NORMALS: Equal, round and reactive pupils present, EOMs intact bilaterally, conjunctivae normal and no scleral icterus CONJUNCTIVA: Yes conjunctivae normal PUPIL: Yes Equal, round and reactive pupils present Neck/C-Spine: COMMON NORMALS: no JVD Chest: COMMONS NORMALS: normal inspection of the chest and normal palpation of entire chest wall Resp: COMMON NORMALS: normal respiratory effort, No retractions, No use of accessory muscles and clear to auscultation bilaterally AUSCULTATION: clear to auscultation bilaterally Cardio: COMMON NORMALS: no JVD, regular rate, regular rhythm, S1 normal heart sound present, S2 normal heart sound present, No gallops present (Cardio), No clicks present (Cardio), No murmurs present (Cardio) and No rub (Cardio) R ATE: regular rate RHYTHM: regular rhythm HEART SOUNDS: S1 normal heart sound present and S2 normal heart sound present GI: COMMON NORMALS: Normal to inspection, nondistended, normoactive bowel sounds present, Soft to palpation, non-tender, No hepatosplenomegaly present and no masses PALPATION: Yes Soft to palpation and Yes No hepatosplenomegaly present Neuro: COMMON NORMALS: patient oriented x3 SENSORIUM/ORIENTATION: Yes alert Course 2 Vital Signs: Vital signs: Vital Signs Temperature 97.6 F 10/14/23 13:37 Pulse Rate 71 10/14/23 13:37 Respiratory Rate 18 10/14/23 13:37 Blood Pressure 137/86 10/14/23 13:37 Pulse Oximetry 97 10/14/23 13:37 Oxygen Delivery Me thod Room Air 10/14/23 13:37 MDM - Neck Pain/Injury Medical Decision Making Consult anesthesia to evaluate patient for blood patch. Lab work was obtained which was benign. Anesthesia did blood patch which seemed to help headache. Patient be discharged home. Differential Diagnosis Unlikely disc disorder of cervical region, whiplash injury to neck, closed subluxation of cervical spine, fracture of cervical spine without lesion of spinal cord, cervical radiculopathy, vertebral artery dissection, torticollis, cervical spondylosis or strain of neck muscle Medical Records I reviewed the patient's medical records. Lab Data I reviewed the patient's lab results. 10/14/23 15:27 10/14/23 15:27 Laboratory Results WBC 8.00 10^3/uL (3.29-11.43) 10/14/23 15: RBC 4.78 10^6/uL (3.85-5.65) 10/14/23 15:27 Hgb 14.20 g/dL (11.27-16.99) 10/14/23 15:27 Hct 42.4 % (37-53) 10/14/23 15:27 MCV 88.7 fl (82-101) 10/14/23 15:27 MCH 29.7 pg (27-33) 10/14/23 15: MCHC 33.5 g/dL (30-55) 10/14/23 15: RDW 13.2 % (12.1-15.1) 10/14/23 15: Plt Count 171 10^3/cmm (157-399) 10/14/23 15: MPV 12.5 fL (7.4-10.4) H 10/14/23 15: Neut % (Auto) 52.3 % 10/14/23 15: Lymph % (Auto) 32.1 % 10/14/23 15: [place] % (Auto) 11.0 % 10/14/23 15: Eos % (Auto) 3.0 % 10/14/23 15: Baso % (Auto) 1.1 % 10/14/23: Neut # (Auto) 4.18 10^3/uL (1.8-7.7) 10/14/23: Lymph # (Auto) 2.6 10^3/uL (0.8-4.8) 10/14/23 15: [place] # (Auto) 0.9 10^3/uL (0.2-0.9) 10/14/23 15: Eos # (Auto) 0.2 10^3/uL (0.0-0.8) 10/14/23: Baso # (Auto) 0.1 10^3/uL (0.0-0.1) 10/14/23 15: Nucleated RBC % (auto) 0 % 10/14/23 15: Nucleated RBCs # 0.0 /100WBC 10/14/23 15: PT 12.30 SECONDS (12.1-14.9) 10/14/23 15: INR 0.89 (0.8-1.2) 10/14/23 15: Sodium 137 mmol/L (136-145) 10/14/23 15: Potassium 4.3 mmol/L (3.5-5.1) 10/14/23 15: Chloride 104 mmol/L (98-107) 10/14/23 15: Carbon Dioxide 25 mmol/L (22-29) 10/14/23 15:27 Anion Gap 12.3 (5-19) 10/14/23 15:27 BUN 14 mg/dL (6-20) 10/14/23 15:27 Creatinine 1.1 mg/dL (0.7-1.2) 10/14/23 15:27 GFR Calculation 74.9 mL/min (90-130) L 10/14/23 15:27 Glucose 83 mg/dL (65-115) 10/14/23 15:27 Calculated Osmolality 284 mOsm/kg (285-295) L 10/14/23 15:27 Calcium 9.3 mg/dL (8.5-10.5) 10/14/23 15:27 Total Bilirubin 0.2 mg/dL (0.15-1.2) 10/14/23 15:27 AST 14 U/L (0-40) 10/14/23 15:27 ALT 32 U/L (0-41) 10/14/23 15:27 Alkaline Phosphatase 63 U/L (40-130) 10/14/23 15:27 Total Protein 6.8 g/dL (6.6-8.7) 10/14/23 15:27 Albumin 4.1 g/dL (3.5-5.2) 10/14/23 15:27 Globulin 2.7 g/dL (1.3-4.6) 10/14/23 15:27 No radiology studies performed this visit Discharge Plan Discharge Patient Disposition: Home Clinical Impression: Headache after spinal puncture Condition: Stable Prescriptions: No Action All Day Allergy (cetirizine) 10 mg capsule 10 mg PO DAILY hydrocodone-acetaminophen 5-325 mg tablet 1 tab PO Q4H Qty: 15 0RF nlqpphyfjh-gcxzfsbvbwwmu-kxjv 50-325-40 mg tablet 1 tab PO Q4H PRN (Reason: Headache) ibuprofen 200 mg Tablet 400 mg PO Q6H PRN (Reason: Pain) albuterol sulfate 90 mcg/actuation Hfa Aerosol Inhaler 2 puff INHALATION 6XD PRN (Reason: Shortness Of Breath) vitamin B complex Tablet Extended Release 1 tab PO DAILY epinephrine [EpiPen 2-Robert] 0.3 mg/0.3 mL auto-injector 0.3 mg IM Q20M PRN (Reason: anaphylaxis) Qty: 2 0RF Rx Instructions: for 3 doses Discharge Orders: Discharge ED (Routine); Ordered 10/14/23 Ordered By: Michael Maxwell Referrals: Lincoln Ontiveros [Primary Care Provider] - 1 week Patient Instructions: Epidural Blood Patch (DC) Activity Restrictions/Additional Instructions: Please continue pushing fluids and caffeinated beverages. Please return to your family practice doctor within the next 7 days for further evaluation and treatment as needed. Coding Level of Care Code ED Physician Practice Coordinator for Yassine Wagner
[2023-10-14 15:37] LABS: Basophils # 0.1 10^3/uL (0.0-0.1); Basophils % 1.1 %; Eosinophils # 0.2 10^3/uL (0.0-0.8); Hematocrit 42.4 % (37-53); Lymphocytes # 2.6 10^3/uL (0.8-4.8); Lymphocytes % 32.1 %; Mean Corpuscular HGB Conc 33.5 g/dL (30-55); Mean Corpuscular Hemoglobin 29.7 pg (27-33); Mean Corpuscular Volume 88.7 fl (82-101); Mean Platelet Volume 12.5 fL (7.4-10.4); Monocytes # 0.9 10^3/uL (0.2-0.9); Neutrophils # 4.18 10^3/uL (1.8-7.7); Neutrophils % 52.3 %; Nucleated Red Blood Cells % 0 %; Platelet Count 171 10^3/cmm (157-399); Red Blood Count 4.78 10^6/uL (3.85-5.65); Red Cell Distribution Width 13.2 % (12.1-15.1)
[2023-10-14] MEDS: sodium chloride 0.9% 1,000 ML 999 ML IV (15:46)
[2023-10-14 15:49] LABS: INR 0.89 (0.8-1.2)
[2023-10-14] MEDS: HYDROmorphone 1 mg/mL INJ 1 mL 0.5 MG IVP ×2 (15:50→17:20)
[2023-10-14 15:56] LABS: Alanine Aminotransferase 32 U/L (0-41); Albumin Level 4.1 g/dL (3.5-5.2); Alkaline Phosphatase 63 U/L (40-130); Anion Gap 12.3 (5-19); Aspartate Amino Transferase 14 U/L (0-40); Blood Urea Nitrogen 14 mg/dL (6-20); Calcium 9.3 mg/dL (8.5-10.5); Carbon Dioxide 25 mmol/L (22-29); Chloride 104 mmol/L (98-107); Globulin 2.7 g/dL (1.3-4.6); Glomerular Filtration Rate 74.9 mL/min (90-130); Glucose 83 mg/dL (65-115); Osmolality Calculated 284 mOsm/kg (285-295); Potassium 4.3 mmol/L (3.5-5.1); Sodium 137 mmol/L (136-145); Total Bilirubin 0.2 mg/dL (0.15-1.2); Total Protein 6.8 g/dL (6.6-8.7)
[2023-10-14 16:00] VITALS: BP 107/66; PULSE 72; O2SAT 93
--- NOTE | 2023-10-14 17:20 | ANES.PROC ---
Anesthesia Procedures Procedure/Date: 10/14/23 Epidural Blood Patch Procedure Narrative: Epidural steroid injection earlier in week at pain center, positional headache, improved with recumbency. Has tried pushing fluids and caffeine without success. Epidural: Time Out Performed: Yes Consents Signed: Procedure Consent Consent: requested by attending/covering physician, from patient, risks and benefits reviewed and patient agrees to proceed Lumbar Level: L4-L5 Epidural position: sitting Epidural procedure: sterile prep of area, 1% lidocaine to numb the area and 18 g needle Additional Comments: After sterile prep and drape (gloves), epidural needle passed to epidural space (4 attempts at same level), 15mls of blood obtained in sterile fashion from right arm (several attempts)--12mls injected until back discomfort. Discussed weight lifting restriction for week or so. Patient tolerated well.
[2023-10-14 17:30] VITALS: BP 121/76; PULSE 74; O2SAT 93
[2023-10-14 18:00] VITALS: BP 141/65; PULSE 77; O2SAT 93
== END 2023-10-14 18:03 | disposition home or self-care (01) ==
PROVIDERS: Emergency Provider Emergency Medicine; PCP Family Medicine
DX: G97.1 Other reaction to spinal and lumbar puncture (principal)
CPT/HCPCS: 36415; 80053; 85025; 85610; 96374; 96376; 99284; J1170; J7030

== ENCOUNTER 2023-10-18 14:00 | Emergency (ER) | payer MEDICAID, SELFPAY ==
[2023-10-18 14:09] VITALS: BP 165/99; PULSE 98; RESP 16; TEMP 37.1; O2SAT 95; BMI 43.7
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
[2023-10-18] MEDS: ketorolac 30 mg/mL INJ IM (15:03)
[2023-10-18] MEDS: dexamethasone 10 mg/mL INJ IM (15:06)
[2023-10-18] MEDS: metoclopramide 5 mg/mL SDV 2 mL 10 MG IM (15:08)
[2023-10-18 15:23] VITALS: BP 155/92; PULSE 95; RESP 16; TEMP 37.1; O2SAT 98
== END 2023-10-18 15:24 | disposition home or self-care (01) ==
PROVIDERS: Emergency Provider Nurse Practitioner Family; PCP Family Medicine
DX: S29.012A Strain of muscle and tendon of back wall of thorax, initial encounter (principal); R51.9 Headache, unspecified; X50.9XXA Other and unspecified overexertion or strenuous movements or postures, initial encounter
CPT/HCPCS: 96372; 99284; J1100; J1885; J2765

== ENCOUNTER 2024-05-18 17:06 | Emergency (ER) | payer MEDICAID, SELFPAY ==
[2024-05-18 17:07] VITALS: BP 135/107; PULSE 104; RESP 18; TEMP 36.7; O2SAT 92; BMI 43.7
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
[2024-05-18 17:19] VITALS: BP 135/107; PULSE 104; RESP 18; O2SAT 92
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
[2024-05-18] MEDS: ondansetron 2 mg/ML SDV 2 mL 4 MG IM (18:01)
[2024-05-18 18:03] VITALS: RESP 20
[2024-05-18] MEDS: morphine 4 mg/mL SDV 1 mL IM (18:03)
[2024-05-18 18:43] VITALS: BP 147/82; PULSE 100; O2SAT 93
== END 2024-05-18 18:45 | disposition home or self-care (01) ==
PROVIDERS: Emergency Provider Physician Assistant; PCP Family Medicine
DX: S09.8XXA Other specified injuries of head, initial encounter (principal); S40.012A Contusion of left shoulder, initial encounter; S13.4XXA Sprain of ligaments of cervical spine, initial encounter; V89.2XXA Person injured in unspecified motor-vehicle accident, traffic, initial encounter
CPT/HCPCS: 70450; 72125; 72128; 72131; 73030; 96372; 99284; J2270; J2405

== ENCOUNTER 2024-05-20 16:49 | Emergency (ER) | payer MEDICAID, SELFPAY ==
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
[2024-05-20 16:58] VITALS: BP 138/89; PULSE 82; RESP 17; TEMP 36.9; O2SAT 95; BMI 47.5
[2024-05-20 18:10] VITALS: BP 144/116; RESP 16; O2SAT 95
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
[2024-05-20] MEDS: sodium chloride 0.9% 1,000 ML 999 ML IV (18:42)
[2024-05-20] MEDS: ketorolac 60 mg/2 mL INJ 30 MG IVP (18:44)
[2024-05-20] MEDS: ondansetron 2 mg/ML SDV 2 mL 4 MG IVP (18:44)
[2024-05-20] MEDS: dexamethasone 10 mg/mL INJ 8 MG IVP (18:45)
[2024-05-20] MEDS: diphenhydrAMINE 50 mg/mL SDV 1mL IVP (18:46)
[2024-05-20 19:20] VITALS: BP 163/99; PULSE 90; RESP 18; O2SAT 98
[2024-05-20 19:39] VITALS: BP 159/95; PULSE 90; RESP 16; O2SAT 96
[2024-05-20 19:40] VITALS: BP 159/95; PULSE 85; RESP 18; O2SAT 97
== END 2024-05-20 20:02 | disposition home or self-care (01) ==
PROVIDERS: Emergency Provider Physician Assistant; PCP Family Medicine
DX: G43.919 Migraine, unspecified, intractable, without status migrainosus (principal)
CPT/HCPCS: 73502; 73562; 96361; 96374; 96375; 99284; J1100; J1200; J1885; J2405; J7030

== ENCOUNTER 2024-07-09 15:53 | Outpatient (CLI) | payer OTHER, SELFPAY ==
--- NOTE | 2024-07-09 16:00 | MR_ITS ---
WS: [id number] MRI LUMBAR SPINE WITH CONTRAST TECHNIQUE: Sagittal T1, T2 and STIR imaging. Axial T1 and T2 imaging. Post gadolinium imaging was obt ained. CLINICAL INFORMATION: Mild annular bulging. COMPARISON: MRI 09/08/2023 FINDINGS: Mild lumbar curve. No acute compression. Disc bulging worse at L5-S1. No high-grade central canal etienne nosis. Bilateral pars defects L5-S1 with slight grade 1 anterolisthesis measuring 2 mm. Small central protrusion L5-S1 appears slightly progressed. L1-L2: Mild annular bulging. Mild facet arthropathy. Spinal canal and foramen are patent. L2-L3: Mild annular bulging. Mild facet arthropathy. Spinal canal and foramen are patent. L3-L4: Slight retrolisthesis. Mild annular bulging. Moderate facet arthropathy. Mild bilateral forami nal narrowing with small foraminal protrusions. L4-L5: Mild annular bulging. Tiny RIGHT foraminal protrusion with mild RIGHT foraminal narrowing. Mil d LEFT foraminal narrowing. Moderate facet arthropathy. L5-S1: Shallow central protrusion. Slight effacement of the ventral thecal sac. Moderate facet arthro angel. Moderate LEFT foraminal narrowing impinges the exiting LEFT L5 nerve root. Mild RIGHT foramina l narrowing. Chronic bilateral pars defects. Visualized pelvic bony structures: Normal. Paravertebral soft tissues: Normal. No abnormal gadolinium enhancement. MR/MR lumbar spine wo/w con [id number] IMPRESSION: 1. Mild lumbar curve. No acute compression. 2. Bilateral pars defects L5-S1 unchanged from previous. Slight anterolisthesi s measuring 2 mm 3. Slightly progressed central protrusion at L5-S1 with slight effacement of t he ventral thecal sac. Slight impingement on the traversing S1 nerve roots. LEF T foraminal protrusion at this level impinges the exiting L5 nerve root unchang ed. 4. Small bilateral foraminal protrusions L3-4 and RIGHT L4-5 with mild foramin al narrowing. 5. Moderate facet arthropathy L4-L5 and L5-S1.
== END 2024-07-09 15:54 | disposition home or self-care (01) ==
LOC: RAD 15:55
PROVIDERS: PCP Family Medicine; Visit Provider Orthopaedic Surgery
DX: M51.36 Other intervertebral disc degeneration, lumbar region (principal); M48.061 Spinal stenosis, lumbar region without neurogenic claudication; M47.816 Spondylosis without myelopathy or radiculopathy, lumbar region; M51.27 Other intervertebral disc displacement, lumbosacral region; M48.07 Spinal stenosis, lumbosacral region; M47.817 Spondylosis without myelopathy or radiculopathy, lumbosacral region
CPT/HCPCS: 72158; A9577

== ENCOUNTER → 2024-07-11 14:46 | Outpatient (BNVA) | payer MEDICAID, SELFPAY | PROVIDERS: PCP Family Medicine; Visit Provider Orthopaedic Surgery | DX: M48.062 Spinal stenosis, lumbar region with neurogenic claudication (principal) | CPT/HCPCS: 36415; 80053; 81001; 85025 ==

== ENCOUNTER → 2024-08-02 10:59 | Outpatient (BNVA) | payer MEDICAID, SELFPAY | PROVIDERS: PCP Family Medicine; Visit Provider Family Medicine | DX: Z01.818 Encounter for other preprocedural examination (principal) | CPT/HCPCS: 81003 ==

== ENCOUNTER 2024-08-19 05:43 | Day surgery (SDC) | payer MEDICAID, SELFPAY ==
[2024-08-19] VITALS (15 sets, daily range): BP systolic 120–168; BP diastolic 81–112; PULSE 79–99; RESP 16–18; TEMP 36.1–36.3; O2SAT 90–99; BMI 47.5
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
[2024-08-19] MEDS: sodium chloride 0.9% 1,000 ML 30 ML IV (06:17)
--- NOTE | 2024-08-19 06:23 | W.PM.OPSUD ---
Surgery/Procedure H&P Update DATE OF PROCEDURE: August 19, 2024 DATE H&P PERFORMED: 08/02/24 H&P UPDATE INFORMATION: I have reviewed H&P completed within last 30 days, I have examined patient prior to procedure and No changes to prior documentation PREOP DIAGNOSIS: Lumbar stenosis with neurogenic claudication PLANNED PROCEDURE: Operation Date: 08/19/24 07:00 Proposed Procedures p Lumbar Spine Decompression Lumbar Decompression(Not Applicable) - Alex Holt DO
[2024-08-19] MEDS: clindamycin 600 MG/50 ML PREMIX 100 MG IV (07:00)
[2024-08-19] MEDS: lidocaine-epi 1% 20 mL INJ 10 ML INJECTION (07:42)
--- NOTE | 2024-08-19 08:08 | PM.OP ---
Operative Report Date of procedure: August 19, 2024 Pre-op diagnosis: Lumbar stenosis neurogenic claudication Post-op diagnosis: same Procedure done: L5-S1 laminectomy with partial facetectomy Surgeon: Alex Holt DO Estimated blood loss (mL): 5 Procedure: L5-S1 laminectomy with partial facetectomy Patient is brought to the operative suite. After undergoing anesthesia they are placed in the prone position. All areas of impingement are well padded. Patient is then prepped and draped in the normal sterile fashion. A skin incision is made over the L5-S1 level. This is confirmed under c-arm guidance. A series of dilators are passed and the tubular retractor is docked on the L5 lamina. A bovie is used to clear the soft tissue off the lamina and the L 5/S1 facet joint. A high speed yarelis is then used to perform the laminectomy and take down the medial aspect of the L 5/s1 facet joint. A kerrison rongeure was then used to take down the remaining lamina and smooth the edge of the laminectomy up to the point where the ligamentum flavum attaches. Attention was then brought to the medial aspect of the facet joint. The remaining medial aspect of the superior and inferior aspect of the facet joint were taken down with the kerrison from the pedicle of L5 to S1. The facet joint had significant hypertrophy. Attention was then brought to the Ligamentum Flavum. The ligament was taken down from the lamina of L5 to S1 and out medially to the remaining facet joint. The ligament was thick. The dura was then exposed. The dura was in good repair. The L5 nerve was then traced with a curette out the L5/S1 foramen and found to be adequately decompressed. The S1 nerve was traced with a curette around the S1 pedicle. The lateral recess was opened with a kerrison helping to further decompress the S1 nerve. Wound is then irrigated copiously with saline and surgiflo is used to stop any bleeding. The tubular retractor is removed and the wound is closed with vicryl and monocryl suture. Glue is then used to protect the wound. A sterile dressing is then placed. Patient was then placed in the supine position and transferred to the PACU in stable condition.
--- NOTE | 2024-08-19 08:24 | XR_ITS ---
WS: [id number] C-ARM RADIOGRAPHS LUMBAR SPINE; 2 IMAGES HISTORY: or pic, decompression COMPARISON: None available. Intraoperative imaging during spinal decompression hardware. There is a marker indicating the LEFT L5 -S1 level. XR/XR lumbar spine 1V [id number] IMPRESSION: Intraoperative imaging during spinal decompression.
[2024-08-19] MEDS: HYDROmorphone 1 mg/mL INJ 1 mL 0.5 MG IVP ×2 (08:32→09:56)
[2024-08-19] MEDS: HYDROcodone-acetaminophen 5-325 mg Tablet 2 TAB PO (09:11)
--- NOTE | 2024-08-19 10:18 | SUR.PHASEII ---
Patient has reported pain at 10/10 in phase 2 after prescribed dose of [id number]. Patients dressing inspected and is clean and dry with no swelling at site. Patient reported that his home dose of hydrocodone is 7.5/325x2 tab q8h from pain doctor but we did not have that in his chart. Reported this to Dr. Holt. Patient also medicated with 0.5mg dilaudid IVP per anesthesia and patient says pain is feeling better currently. Patient requested to speak again with Dr. Holt, Dr. Holt saw patient in post op room.
--- NOTE | 2024-08-19 11:45 | ANE.PACU2 ---
Inpatient post-anesthesia follow up: Airway intact: Yes Vital signs: Temperature 97.3 F Pulse Rate 88 Respiratory Rate 18 Blood Pressure 154/112 Pulse Oximetry 94 Oxygen Delivery Me thod Room Air Oxygen Flow Rate Fraction of Inspir ed Oxygen Hydration adequate: Yes Nausea and vomiting: No Pain level: 3 Mental status: Baseline
--- NOTE | 2024-08-19 11:45 | SUR.PHASEII ---
Patient has been ready for discharge for some time. He has been waiting on pharmacy to bring his updated rx after new was sent by Dr. Holt. Pharmacy is having to call insurance and talk to a showroom sales consultant and that it would be a while still. 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 Patient went out by wheelchair and stated comfortable enough to go home.
== END 2024-08-19 11:45 | disposition home or self-care (01) ==
PROVIDERS: PCP Family Medicine; Visit Provider Orthopaedic Surgery
PROC: (CPT 63005; principal; 2024-08-19 07:00)
DX: M48.062 Spinal stenosis, lumbar region with neurogenic claudication (principal); K21.9 Gastro-esophageal reflux disease without esophagitis; F41.9 Anxiety disorder, unspecified; F32.A Depression, unspecified; Z87.891 Personal history of nicotine dependence
CPT/HCPCS: 63047; 72020; 76000; J1171; J2250; J2704; J3490; J7030

== ENCOUNTER 2024-10-23 06:30 | Outpatient (RCR) | payer MEDICAID, SELFPAY | END 2024-11-22 23:59 | disposition home or self-care (01) | LOC: WPT 06:30 | PROVIDERS: Visit Provider Orthopaedic Surgery | DX: M54.9 Dorsalgia, unspecified (principal); M54.2 Cervicalgia; G89.29 Other chronic pain | CPT/HCPCS: 97162 ==

== ENCOUNTER 2024-11-23 06:30 | Outpatient (RCR) | payer MEDICAID, SELFPAY | END 2024-12-20 23:55 | disposition home or self-care (01) | LOC: WPT 06:30 | PROVIDERS: Visit Provider Orthopaedic Surgery | DX: M54.9 Dorsalgia, unspecified (principal); M54.2 Cervicalgia; G89.29 Other chronic pain | CPT/HCPCS: 97110; 97530 ==

== ENCOUNTER 2024-12-21 06:30 | Outpatient (RCR) | payer MEDICAID, SELFPAY | END 2025-01-20 23:59 | disposition home or self-care (01) | LOC: WPT 06:30 | PROVIDERS: Visit Provider Orthopaedic Surgery | DX: M54.9 Dorsalgia, unspecified (principal); M54.2 Cervicalgia; G89.29 Other chronic pain | CPT/HCPCS: 97110; 97112; 97530 ==

== ENCOUNTER 2025-03-03 12:40 | Outpatient (CLI) | payer MEDICAID, SELFPAY ==
--- NOTE | 2025-03-03 13:00 | MR_ITS ---
WS: [id number] MRI LUMBAR SPINE NONCONTRAST TECHNIQUE: Sagittal T1, T2 and STIR imaging. Axial T1 and T2 imaging. CLINICAL INFORMATION: back pain COMPARISON: MRI 07/09/2024 FINDINGS: Mild lumbar curve. No acute compression. Disc bulging worse at L5-S1. Chronic pars defects L5-S1. Minimal anterolisthesis. L1-L2: Mild annular bulging. Mild facet arthropathy. Spinal canal and foramen are patent. L2-L3: Mild annular bulging. Mild facet arthropathy. Mild RIGHT foraminal narrowing. L3-L4: Slight retrolisthesis L3 on L4. Mild annular bulging. Mild facet arthropathy. Narrowing of the LEFT subarticular recess. Mild RIGHT greater than LEFT foraminal narrowing. L4-L5: Mild annular bulging. Moderate facet arthropathy. Mild LEFT greater than RIGHT foraminal narrowing. L5-S1: Chronic spondylolysis. Central disc bulging with impingement of traversing S1 nerve roots bilaterally. Moderate facet arthropathy. Moderate LEFT and mild RIGHT foraminal narrowing. Left-right narrowing of the thecal sac. Hemilaminectomy L5-S1. Visualized pelvic bony structures: Normal. Paravertebral soft tissues: Normal. MR/MR lumbar spine wo con* [id number] IMPRESSION: 1. Chronic bilateral pars defects at L5-S1 with slight anterolisthesis unchang ed. Central disc bulging with slight encroachment on the traversing S1 nerve ro ots. This appears improved compared to previous with hemilaminectomy defects. 2. Moderate LEFT L5-S1 foraminal narrowing. 3. Slight retrolisthesis L3 on L4 with mild bilateral foraminal narrowing and narrowing of the subarticular recess. 4. Mild annular bulging L4-5 with mild LEFT foraminal narrowing and moderate f acet arthropathy. 5. No other significant changes.
== END 2025-03-03 12:41 | disposition home or self-care (01) ==
PROVIDERS: PCP Family Medicine; Visit Provider Orthopaedic Surgery
DX: M51.379 Other intervertebral disc degeneration, lumbosacral region without mention of lumbar back pain or lower extremity pain (principal); M43.07 Spondylolysis, lumbosacral region; M48.07 Spinal stenosis, lumbosacral region; M51.369 Other intervertebral disc degeneration, lumbar region without mention of lumbar back pain or lower extremity pain; M47.896 Other spondylosis, lumbar region; M43.8X6 Other specified deforming dorsopathies, lumbar region; M47.897 Other spondylosis, lumbosacral region; Z98.890 Other specified postprocedural states
CPT/HCPCS: 72148

== ENCOUNTER → 2025-03-25 15:06 | Outpatient (BNVA) | payer MEDICAID, SELFPAY | PROVIDERS: PCP Family Medicine; Visit Provider Orthopaedic Surgery | DX: M54.2 Cervicalgia (principal) | CPT/HCPCS: 72050 ==

== ENCOUNTER 2025-04-30 08:39 | Day surgery (SDC) | payer MEDICAID, SELFPAY ==
[2025-04-30] VITALS (10 sets, daily range): BP systolic 112–148; BP diastolic 58–92; PULSE 76–90; RESP 16–18; TEMP 36.2–36.3; O2SAT 90–100
--- NOTE | 2025-04-30 09:58 | ANES.PREANE2 ---
Pre-Anesthetic Assessment Height/Weight: Height 1.91 m Weight 155.582 kg Temp Pulse Resp BP Pulse Ox O2 Del Method 97.2 F L 81 18 148/88 98 Room Air 04/30/25 09:04 04/30/25 09:04 04/30/25 09:04 04/30/25 09:04 04/30/25 09:04 04/30/25 09:04 Preop Diagnosis: Lumbar stenosis with neurogenic claudication Operation Date: 04/30/25 10:25 Proposed Procedures p Lumbar Spine Decompression(Not Applicable) - Alex Holt, DO Familial anesthetic complications: None Was Beta Roma taken within 24 hours: N/A Was Clonidine taken within 24 hours: N/A Last intake: > 8hrs Social No alcohol and No tobacco Exam alert, oriented x 3, clear to auscultation bilaterally and regular rate & rhythm Airway Mallampati: Class IV Dentition: full GI Gastroesophageal Reflux Disease Metabolic Morbid Obesity Neuropsych Seizure Anesthetic Plan ASA status: 3 Anesthesia: General Risk of > 500 ml blood loss (7ml/kg in children): No Medications/Allergies Home Medications ?Medication ?Instructions ?Recorded ?Confirmed ?Last Taken ?Type cetirizine 10 mg capsule (All Day 10 mg PO DAILY 07/02/21 04/30/25 04/29/25 History Allergy (cetirizine)) albuterol sulfate 90 mcg/actuation 2 puff inhalation 6XD PRN 08/15/22 04/30/25 11/20/24 History aerosol inhaler Shortness Of Breath epinephrine 0.3 mg/0.3 mL 0.3 mg (0.3 mL) IM Q20M PRN 08/15/22 04/30/25 Unknown Rx injection, auto-injector (EpiPen anaphylaxis #2 ea [id number]) cyclobenzaprine 5 mg tablet 5 mg PO TID PRN Spasms 08/02/24 04/30/25 04/01/25 History duloxetine 60 mg capsule,delayed 60 mg PO DAILY 08/02/24 04/30/25 04/29/25 History release meloxicam 15 mg tablet 15 mg PO DAILY 08/02/24 04/30/25 04/23/25 History hydrocodone 5 mg-acetaminophen 325 1 - 2 tab PO .Q4-6H #40 tabs 08/19/24 04/30/25 04/29/25 Rx mg tablet Allergies Allergy/AdvReac Type Severity Reaction Status Date / Time Penicillins Allergy Severe throat Verified 04/15/25 08:14 swelling and rash fentanyl Allergy ADR-Swelling Verified 04/15/25 08:14 of the Eye sulfamethoxazole (From Allergy ALGY-Swell Verified 04/15/25 08:14 Bactrim) Lip/Tongue/Throat trimethoprim (From Bactrim) Allergy ALGY-Swell Verified 04/15/25 08:14 Lip/Tongue/Throat Current Medications Generic Name Dose Route Start Last Admin Trade Name Freq PRN Reason Stop Dose Admin Sodium Chloride 1,000 mls @ 30 mls/hr 04/30/25 09:00 04/30/25 09:21 Sodium Chloride 0.9% IV 05/01/25 08:59 30 mls/hr .Q24H MIKAEL Administration PFSH Anesthesia Medical History Nodule of left lung Neuropathy Anxiety Depression Surgical History Hx of inguinal hernia surgery Family History Father Healthy adult Mother Unknown family medical history Social History Smoking and tobacco/nicotine status: former use of tobacco/nicotine Alcohol intake: current Alcohol intake frequency: few times a month Substance/Drug Use: never Marital status: Number of children: 4 Current occupational status: employed
--- NOTE | 2025-04-30 10:02 | W.PM.OPSFHP ---
Same Day Surgery H&P Indication for Procedure/HPI DATE OF PROCEDURE: April 30, 2025 CHIEF COMPLAINT/INDICATIONFOR SURGICAL PROCEDURE: Back and left leg pain PREOP DIAGNOSIS: Lumbar stenosis with neurogenic claudication PLANNED PROCEDURE: Operation Date: 04/30/25 10:25 Proposed Procedures p Lumbar Spine Decompression(Not Applicable) - Alex Holt DO Medications/Allergies* Home Medications ?Medication ?Instructions ?Recorded ?Confirmed ?Type cetirizine 10 mg capsule (All Day 10 mg PO DAILY 07/02/21 04/30/25 History Allergy (cetirizine)) albuterol sulfate 90 mcg/actuation 2 puff inhalation 6XD PRN 08/15/22 04/30/25 History aerosol inhaler Shortness Of Breath cyclobenzaprine 5 mg tablet 5 mg PO TID PRN Spasms 08/02/24 04/30/25 History duloxetine 60 mg capsule,delayed 60 mg PO DAILY 08/02/24 04/30/25 History release meloxicam 15 mg tablet 15 mg PO DAILY 08/02/24 04/30/25 History Allergies/Adverse Reactions Allergy/AdvReac Type Severity Reaction Status Date / Time Penicillins Allergy Severe throat Verified 04/15/25 08:14 swelling and rash fentanyl Allergy ADR-Swelling Verified 04/15/25 08:14 of the Eye sulfamethoxazole (From Allergy MASOUD-Swemiguel angel Verified 04/15/25 08:14 Bactrim) Lip/Tongue/Throat trimethoprim (From Bactrim) Allergy ALGY-Swell Verified 04/15/25 08:14 Lip/Tongue/Throat Current Medications: Generic Name Dose Route Start Last Admin Trade Name Freq PRN Reason Stop Dose Admin Sodium Chloride 1,000 mls @ 30 mls/hr 04/30/25 09:00 04/30/25 09:21 Sodium Chloride 0.9% IV 05/01/25 08:59 30 mls/hr .Q24H MIKAEL Administration Pertinent History/Comorbid Conditions* Medical History (Updated 05/28/24 @ 00:01 by GAYATHRI Nieto) Nodule of left lung Neuropathy Anxiety Depression Surgical History (Updated 08/27/24 @ 10:45 by Alex Holt DO) Hx of inguinal hernia surgery Family History (Updated 07/02/21 @ 12:30 by Kiara Rousseau LPN) Healthy adult Father Unknown family medical history Mother Social History Smoking and tobacco/nicotine status: former use of tobacco/nicotine Alcohol intake: current Alcohol intake frequency: few times a month Substance/Drug Use: never Marital status: Number of children: 4 Current occupational status: employed Pertinent Exam Findings alert, oriented x 3 and procedure specific exam findings Recommendations Risks and benefits of procedure reviewed and Patient/family agree to proceed Surgery/Procedure today Coding Level of Care Code Acute Code for [facility]
--- NOTE | 2025-04-30 10:45 | ANE.PACU2 ---
Inpatient post-anesthesia follow up: Airway intact: Yes Vital signs: Temperature 97.3 F Pulse Rate 82 Respiratory Rate 16 Blood Pressure 134/68 Pulse Oximetry 95 Oxygen Delivery Me thod Room Air Oxygen Flow Rate Fraction of Inspir ed Oxygen Hydration adequate: Yes Nausea and vomiting: No Pain level: 1 Mental status: Baseline
[2025-04-30] MEDS: metroNIDAZOLE IV 500 MG/100 ML PREMIX 100 MG IV (10:50)
[2025-04-30] MEDS: lidocaine-epi 1% 20 mL INJ 10 ML INJECTION (11:29)
--- NOTE | 2025-04-30 13:05 | PM.OP ---
Operative Report Date of procedure: April 30, 2025 Pre-op diagnosis: Lumbar stenosis with neurogenic claudication Post-op diagnosis: same Procedure done: 1. L3/4 laminectomy with partial facetectomy 2. L5/S1 revision laminectomy partial facetectomy Surgeon: Alex Holt DO Estimated blood loss (mL): 25 Procedure: 1. L3/4 laminectomy with partial facetectomy 2. L5/S1 revision laminectomy partial facetectomy Patient is brought to the operative suite. After undergoing anesthesia they are placed in the prone position. All areas of impingement are well padded. Patient is then prepped and draped in the normal sterile fashion. A skin incision is made over the L3/4 level. This is confirmed under c-arm guidance. A series of dilators are passed and the tubular retractor is docked on the L3 lamina. A bovie is used to clear the soft tissue off the lamina and the L 3/4 facet joint. A high speed yarelis is then used to perform the laminectomy and take down the medial aspect of the L 3/4 facet joint. A kerrison rongeure was then used to take down the remaining lamina and smooth the edge of the laminectomy up to the point where the ligamentum flavum attaches. Attention was then brought to the medial aspect of the facet joint. The remaining medial aspect of the superior and inferior aspect of the facet joint were taken down with the kerrison from the pedicle of L3 to L 4. The facet joint had significant hypertrophy. Attention was then brought to the Ligamentum Flavum. The ligament was taken down from the lamina of L3 to L4 and out medially to the remaining facet joint. The ligament was thick. The dura was then exposed. The dura was in good repair. The L3 nerve was then traced with a curette out the L3/4 foramen and found to be adequately decompressed. The L4 nerve was traced with a curette around the L4 pedicle. The lateral recess was opened with a kerrison helping to further decompress the L4 nerve. Wound is then irrigated copiously with saline and surgiflo is used to stop any bleeding. The tubular retractor is removed and A skin incision is made over the L5/S1 level. This is confirmed under c-arm guidance. A series of dilators are passed and the tubular retractor is docked on the L5 lamina. A bovie is used to clear the soft tissue off the lamina and the L 5/S1 facet joint. A high speed yarelis is then used to perform the laminectomy and take down the medial aspect of the L 5/S1 facet joint. A kerrison rongeure was then used to take down the remaining lamina and smooth the edge of the laminectomy up to the point where the ligamentum flavum attaches. Attention was then brought to the medial aspect of the facet joint. The remaining medial aspect of the superior and inferior aspect of the facet joint were taken down with the kerrison from the pedicle of L5 to S1. The facet joint had significant hypertrophy And scarring Attention was then brought to the Ligamentum Flavum. The ligament was taken down from the lamina of L5 to S1 and out medially to the remaining facet joint. The ligament was thick. The dura was then exposed. The dura was in good repair. The L5 nerve was then traced with a curette out the L5/S1 foramen and found to be adequately decompressed. The S1 nerve was traced with a curette around the S1 pedicle. The lateral recess was opened with a kerrison helping to further decompress the S1 nerve. Wound is then irrigated copiously with saline and surgiflo is used to stop any bleeding. The tubular retractor is removed and the wound is closed with vicryl and monocryl suture. Glue is then used to protect the wound. A sterile dressing is then placed. Patient was then placed in the supine position and transferred to the PACU in stable condition.
[2025-04-30] MEDS: oxyCODONE 5 mg IR Tab/Cap PO (13:15)
--- NOTE | 2025-04-30 13:22 | XR_ITS ---
WS: [id number] Exam: XR lumbar spine 1V [id number] Date/Time of Exam: 04/30/2025 1:22 PM Reason For Exam: or pic, decompression AP preop images of the lower lumbar spine are submitted. Images were obtained for preop localization purposes.
== END 2025-04-30 14:00 | disposition home or self-care (01) ==
PROVIDERS: PCP Family Medicine; Visit Provider Orthopaedic Surgery
PROC: (CPT 63005; principal; 2025-04-30 10:25)
DX: M48.062 Spinal stenosis, lumbar region with neurogenic claudication (principal); K21.9 Gastro-esophageal reflux disease without esophagitis; E66.09 Other obesity due to excess calories; Z68.41 Body mass index [BMI] 40.0-44.9, adult; R56.9 Unspecified convulsions; Z87.891 Personal history of nicotine dependence; F41.8 Other specified anxiety disorders; G62.9 Polyneuropathy, unspecified
CPT/HCPCS: 63047; 63048; 72020; 76000; J1100; J1171; J1200; J2250; J2405; J2704; J3010; J3490; J7030; J9999

== ENCOUNTER → 2025-06-12 15:14 | Outpatient (BNVA) | payer MEDICAID, SELFPAY | PROVIDERS: PCP Family Medicine; Visit Provider Orthopaedic Surgery | DX: M48.02 Spinal stenosis, cervical region (principal); M54.12 Radiculopathy, cervical region; Z01.818 Encounter for other preprocedural examination | CPT/HCPCS: 36415; 80053; 81001; 85025 ==

== ENCOUNTER → 2025-07-22 15:42 | Outpatient (BNVA) | payer MEDICAID, SELFPAY | PROVIDERS: PCP Family Medicine; Visit Provider Family Medicine | DX: Z01.818 Encounter for other preprocedural examination (principal) | CPT/HCPCS: 81000 ==